=== PATIENT | male | born 1955 | race Caucasian/White ===

== ENCOUNTER 2018-12-06 11:31 | Inpatient (IN) ==
[2018-12-06] MEDS ORDERED: VANCOMYCIN 1 GM/NS 1 GM/250 ML IVPB IV ONE ×3 (12:19→17:00)
[2018-12-06 12:52] LABS: BASO# 0.04 X1000 (0.0-0.2); BASO% 0.6 % (0.0-0.8); EOS# 0.23 X1000 (0.0-0.7); EOS% 3.2 % (0.0-10.0); HEMATOCRIT 34.1 % (42.0-52.0); HEMOGLOBIN 10.9 g/dL (14.0-18.0); IMM GRAN# 0.03 X1000 (0.0-0.04); IMM GRAN% 0.4 % (0.0-0.5); LYMPH# 1.63 X1000 (1.2-3.4); LYMPH% 22.8 % (20.5-51.1); MCH 28.4 PG (27-31); MCV 88.8 FL (81-99); MONO# 0.69 X1000 (0.11-0.59); MONO% 9.7 % (1.7-9.3); MPV 10.1 FL (7.4-10.4); NEUT# 4.53 X1000 (1.4-6.5); NEUT% 63.3 % (42.2-75.2); PLT 215 X1000 (130-400); RBC 3.84 XMIL (4.7-6.1); RDW 13.9 % (11.5-14.5); WBC 7.15 X1000 (4.8-10.8)
--- NOTE | 2018-12-06 13:06 | Diag Imaging Result Doc PS360 ---
EXAM: LOWER LEG-RIGHT 12/06/2018 HISTORY: leg wound, eval for osteo TECHNIQUE: Four views COMMENT: There are soft tissue calcifications anteriorly and marked soft tissue swelling generally. There is some gas seen in the soft tissues medial to the mid tibia. No evidence of periosteal reaction or erosion is present and there is no evidence of fracture or dislocation. IMPRESSION: No evidence of osteomyelitis or other acute bony abnormality. Electronically signed by Rahul Cross 12/06/2018 1:04 PM
[2018-12-06 13:09] LABS: AGAP 12; ALBUMIN 3.8 g/dL (3.5-5.0); ALKALINE PHOSPHATASE 78 U/L (32-122); BUN 18 mg/dL (8-22); CALCIUM 9.3 mg/dL (8.8-10.2); CHLORIDE 98 mmol/L (98-107); COSMO 283; CREATININE 0.8 mg/dL (0.7-1.2); ESTIMATED GFR > 60; GLUCOSE 292 mg/dL (70-104); GOT 15 U/L (10-34); GPT 22 U/L (10-44); SODIUM 135 mmol/L (136-145); TCO2 25 mmol/L (25-35); TOTAL PROTEIN 7.4 g/dL (6.3-8.3)
--- NOTE | 2018-12-06 14:09 | PROVIDER DOCUMENTATION ---
This chart was entered by Gwen Boateng Scribe, acting as scribe for Russ Marie MD. HPI-Rash/Wound/ReCheck - General Chief Complaint: Extremity Pain Stated Complaint: ULCER ON LEG Time Seen by Provider: 12/06/18 12:11 Source: patient, family () Allergies/Adverse Reactions: Allergies Allergy/AdvReac Type Severity Reaction Status Date / Time No Known Allergies Allergy Verified 12/06/18 13:02 Home Medications: Home Medication List Medication Instructions Recorded Confirmed Last Taken Type Amitriptyline [Elavil] 25 mg PO PRN PRN 12/06/18 12/06/18 12/05/18 History Aspirin 325 mg PO DAILY 12/06/18 12/06/18 12/05/18 History Bisoprolol [Zebeta] 5 mg PO DAILY 12/06/18 12/06/18 12/05/18 History Diclofenac Sodium [Pennsaid] 2 gm TOPICAL DAILY 12/06/18 12/06/18 12/05/18 History Exenatide E.r. [Bydureon] 2 mg PO DIRECTED 12/06/18 12/06/18 12/05/18 History Furosemide [Lasix] 40 mg PO DAILY 12/06/18 12/06/18 12/05/18 History Glimepiride 4 mg PO BID 12/06/18 12/06/18 12/05/18 History Insulin Glargine,Hum.rec.anlog 80 unit SQ DAILY 12/06/18 12/06/18 12/05/18 History [Lantus Solostar] Insulin Lispro [Humalog] 30 unit SQ DIRECTED 12/06/18 12/06/18 12/05/18 History Lisinopril/Hydrochlorothiazide 1 tab PO DAILY 12/06/18 12/06/18 12/05/18 History [Lisinopril-Hctz 20-25 mg Tab] Metformin HCl [Metformin HCl ER] 1,000 mg PO BID 12/06/18 12/06/18 12/05/18 History Multivitamin with Minerals 1 ea PO DAILY 12/06/18 12/06/18 12/05/18 History [Multiple Vitamin] Oxycodone HCl/Acetaminophen 1 ea PO 4XDAY 09/28/19 09/28/19 09/27/19 History [Percocet 10-325 mg Tablet] - History of Present Illness-Dermatology Nature of Presenting Problem: 63 yowm presens to the ed with c/o wound on anterior of rt leg. pt sts wound has been present for 1 month and is worsening. pt has PVD with chronic skin changes and severe edema. pt has foul smell to wound and is nickel size. pt sts today is the first day he has left his home in 7 months and is typical home bound. Location: reports: lower extremity Quality: reports: painful Severity: reports: moderate Onset/Duration: reports: other (1 month) Timing: reports: still present, constant, getting worse Context/Associated Symptoms: reports: lesion (yoselyn size), tender area Identifiable cause?: No Exposure: reports: allergen exposure Locality of Occurance: Home Similar Symptoms Previously?: Yes Recently seen or treated by another doctor?: No (has appointment 12/09/18 with pcp) Review of Systems - Adult - REVIEW OF SYSTEMS - ADULT Constitutional: denies: chills, fever Eyes: reports: no symptoms reported Ears, Nose, Mouth & Throat: reports: no symptoms reported Cardiovascular: denies: chest pain, palpitations Respiratory: denies: cough, shortness of breath, wheezing Gastrointestinal: denies: diarrhea, nausea, vomiting Genitourinary: reports: no symptoms reported Musculoskeletal: denies: back pain, neck pain Integumentary: reports: see HPI, skin sores/ulcer, skin thickening Neurological: denies: dizziness/vertigo, headache/migraines Psychiatric: reports: no symptoms reported Endocrine: reports: no symptoms reported Hematologic/Lymphatic: reports: no symptoms reported Allergic/Immunologic: reports: no symptoms reported All Other Systems: Reviewed and Negative Past History - Adult - PAST MEDICAL HISTORY-ADULT Review of Records: reports: Old Records Reviewed, Nursing Assessment Review, Medications Reviewed, Social history reviewed & non-contributory. Major Childhood Illnesses: reports: denies history Cardiovascular: reports: PVD Respiratory: reports: denies history Gastrointestinal: reports: denies history Genitourinary: reports: denies history Musculoskeletal: reports: denies history Hand Dominance: Right Handed Neurological: reports: denies history Psychiatric: reports: denies history Endocrine/Immune: reports: denies history Other Conditions: reports: denies history - PRIOR SURGERIES/PROCEDURES Surgical/Procedure History: reports: reviewed, not pertinent - IMMUNIZATION STATUS Childhood Immunizations: See Nurse Assessment Flu Vaccine: See Nurse Assessment - FAMILY HISTORY Family History: reviewed, not pertinent - SOCIAL HISTORY Smoking: denies Substance Use: denies Living Situation: family Physical Exam-General - PHYSICAL EXAM-ADULT Initial Vital Signs Reviewed: Yes - CONSTITUTIONAL General Appearance: appears well, alert, no apparent distress, obese - EYES Eyes: PERRL/EOMI - HEAD, EARS, NOSE, MOUTH & THROAT HENMT: moist mucous membranes - NECK Neck: non-tender, supple, normal inspection - RESPIRATORY Respiratory: chest non-tender - CARDIOVASCULAR Cardiovascular: normal peripheral pulses, regular rate, rhythm - CHEST (BREASTS) Chest/Breast: deferred - GASTROINTESTINAL (ABDOMEN) Abdominal Exam: non tender, soft - GENITOURINARY Male Genitalia: deferred Rectal Exam: deferred Hemoccult Exam: deferred - LYMPHATIC Lymphatic: no adenopathy - MUSCULOSKELETAL Back Exam: no CVA tenderness, no vertebral tenderness Extremity: normal capillary refill, pelvis stable, erythema, pedal edema, swelling (BLE edema), tenderness, other (wound noted to rt anterior leg yoselyn size) - SKIN Integumentary: erythema (BLE), swelling (BLE), tenderness (BLE), other (lesion noted to rt anterior leg) - NEUROLOGIC Neurologic: grossly normal - PSYCHIATRIC Psych/Mental Status: normal mood/affect, normal thought content, normal thought process, oriented x 3 Progress - PLAN OF CARE/RESULTS Progress/Plan/Lab Results: Vital Signs - 8 hr 12/06/18 11:36 Temperature 98.1 F Pulse Rate 92 H Respiratory Rate 18 Blood Pressure 194/100 O2 Sat by Pulse Oximetry 97 Laboratory Results - last 24 hr 12/06/18 12/06/18 12:46 12:46 WBC 7.15 RBC 3.84 L Hgb 10.9 L Hct 34.1 L MCV 88.8 MCH 28.4 MCHC 32.0 L RDW Std Deviation 13.9 Plt Count 215 MPV 10.1 Immature Gran % (Auto) 0.4 Neut % (Auto) 63.3 Lymph % (Auto) 22.8 Mccormick % (Auto) 9.7 H Eos % (Auto) 3.2 Baso % (Auto) 0.6 Immature Gran # (Auto) 0.03 Neut # (Auto) 4.53 Lymph # (Auto) 1.63 Mccormick # (Auto) 0.69 H Eos # (Auto) 0.23 Baso # (Auto) 0.04 Sodium 135 L Potassium 4.0 Chloride 98 Carbon Dioxide 25 Anion Gap 12 BUN 18 Creatinine 0.8 Estimated GFR/1.73 m2 > 60 BUN/Creatinine Ratio 23 Glucose 292 H Calculated Osmolality 283 Calcium 9.3 Total Bilirubin 0.30 AST 15 ALT 22 Alkaline Phosphatase 78 Total Protein 7.4 Albumin 3.8 Globulin 4.0 Albumin/Globulin Ratio 1.0 Orders Category Date Time Status Isolation [Isolation Precautions Setup] NOW Care 12/06/18 12:52 Active LOWER LEG-RIGHT [RAD] Stat Exams 12/06/18 12:18 Completed BLOOD CULTURE [BLDCUL] Stat Lab 12/06/18 12:44 Ordered CBC WITH ELECTRONIC DIFF [HEME] Stat Lab 12/06/18 12:46 Completed COMPREHENSIVE METABOLIC PANEL [CHEM] Stat Lab 12/06/18 12:46 Completed WOUND CULTURE INC GRAM STAIN [RM] Routine Lab 12/06/18 12:18 Ordered Vancomycin 1 gm/Ns Med 12/06/18 12:19 Discontinued 1 gm in 250 ml IV NOW Result Diagrams: 12/06/18 12:46 12/06/18 12:46 - REASSESSMENT Reassessment #1 Time Reassessed: 13:35 Status: unchanged - XRAY 1 XRAY Study: other (EXAM: LOWER LEG-RIGHT 12/06/2018 HISTORY: leg wound, eval for osteo TECHNIQUE: Four views COMMENT: There are soft tissue calcifications anteriorly and marked soft tissue swelling generally. There is some gas seen in the soft tissues medial to the mid tibia. No evidence of p eriosteal reaction or erosion is present and there is no evidence of fracture or dislocation. IMPRESSION: No evidence of osteomyelitis or other acute bony abnormality. Electronically signed by Rahul Cross 12/06/2018 1:04 PM 12/06/18 130 Interpreting Physician: Rahul Cross MD Dictated Date/Time: 12/06/18 130 cc: Russ Marie MD; Mando Aguilar MD) - CONSULTS/PCP/HOSPITALIST Notification #1 *Consult/PCP/Hospitalist*: hospitalist dr oleary Consult Disposition: Admit Departure - Departure Date of Disposition Decision: 12/06/18 Time of Disposition Decision: 13:36 DIAGNOSIS: Leg ulcer Qualifiers: Laterality: right Non-pressure ulcer stage: unspecified non-pressure ulcer stage Qualified Code(s): L97.919 - Non-pressure chronic ulcer of unspecified part of right lower leg with unspecified severity Disposition: ADMITTED INPATIENT 09 Certified Medical Emergency: Emergent Condition: Stable Referrals and Follow-Ups: Mando Aguilar MD [Primary Care Provider] - - Critical Care Note This patient required my direct & personal management of CC.: No Attestation - Physician/ MAGALYS Attestation Patient care was provided by Advanced Practice Provider:: No The physician spent face to face time with patient:: Yes Advanced Practice Provider documentation review:: Supervising physician onsite and consulted in the evaluation and care of this patient. The physician did have a face to face encounter with the patient. This chart was documented by the indicated scribe, (Gwen Boateng Scribe) and accurately reflects the services I performed and decisions made by me, Russ Marie MD, as attested by the provider's signature.
[2018-12-06] MEDS ORDERED: TYLENOL PO PRN ×2 (14:15→16:09)
[2018-12-06] MEDS ORDERED: PERCOCET-10 PO PRN (14:15)
[2018-12-06] MEDS ORDERED: ELAVIL PO PRN ×2 (14:15→16:07)
[2018-12-06] MEDS ORDERED: ZOFRAN IV PRN (14:15)
[2018-12-06] MEDS ORDERED: VANCOMYCIN IV PER PHARMACY MISC SCH (14:30)
[2018-12-06] MEDS ORDERED: ZOSYN 3.375 GM in NS 50 ML IV SCH (14:30)
[2018-12-06 14:35] LABS: HEMOGLOBIN A1C 10.5 % (4.8-6.0)
--- NOTE | 2018-12-06 15:50 | HISTORY AND PHYSICAL ---
PRIMARY CARE PROVIDER: Dr. Aguilar. CHIEF COMPLAINT: Right jiang wound. HISTORY OF PRESENT ILLNESS: Mr. Cole Reese is a 63-year-old, male, who is severely morbidly obese with a BMI of 48.3. Also, medical history of peripheral vascular disease and lymphadenopathy. States that back in March he went into [facility] for about 2 weeks, weighing in at 462 pounds. Diagnosed with MRSA of a wound infection in 1 of his legs. The nor him could point out what wound it was. Apparently that tested positive for MRSA, so he was at [facility] for 2 weeks and then at [facility] for 2 weeks and dropped down to 397 pounds at that time. Apparently, he has lost a good bit of weight just from that. He became more weak. He was using a cane before he went into there; now he uses a walker around the house. Apparently, there is this wound that has got purulent drainage, almost black drainage in color. It is dark brown. It has been going on for 4 weeks now or a full month. He denies any fever. He also complains of yeast in his groin, and there is stage 1 and rubbing raw areas behind his buttocks where he sits. Lower extremities very scaly and apparently he admitted to his dog licking his wounds when he is asleep. So we have gotten a culture, we started him on antibiotic therapy, we will send him to [facility], let General Surgery look at it. It may need to be debrided. Have Dr. Prather with Infectious Disease take a look at it, follow up on all the cultures. Hopefully we can get an MRI of the lower extremity on Saturday, but he could be weight limited so he may not be able to get one. Going to try and get old records from [facility] from back in March. Will see. We will try and get this cleared up for him. PAST MEDICAL HISTORY: 1. Peripheral vascular disease. 2. Lymphadenopathy. 3. Diabetes mellitus type 2. 4. Hypertension. 5. Chronic pain syndrome. 6. March 2018 MRSA of 1 of his legs. 7. Arthritis. 8. Hyperlipidemia. 9. GERD. 10. Morbid obesity with a BMI of 48.3. 11. Frequent lower extremity wounds. SURGICAL HISTORY: 1. Tonsillectomy. 2. At 5 weeks old, he had umbilical hernia repair. SOCIAL HISTORY: Denies tobacco, drinks 1 alcoholic beverage a month. Denies any illicit drug use. Lives at home with his . FAMILY HISTORY: Had a twin brother who only had asthma, and he has got some sort of hernia as well. His mother had colon cancer that went into the liver. She also had a stroke in her 30s after a car accident. Father had heart disease and a permanent pacemaker. This started in his 60s. ALLERGIES: Celebrex causes anaphylaxis and he had ether when he was a baby, 5 weeks old, that caused respiratory distress. HOME MEDICATIONS: 1. Aspirin 325 mg p.o. daily. 2. Bydureon once a week 2 mg. 3. Elavil 25 mg p.o. at night p.r.n. for insomnia. 4. Glimepiride 4 mg p.o. twice daily. 5. Lispro insulin sliding scale. 6. Insulin glargine 80 units subcutaneous daily. 7. Lasix 40 mg p.o. daily. 8. Lisinopril/hydrochlorothiazide 1 tablet p.o. daily. 9. Metformin 1000 mg p.o. daily. 10. Multivitamin 1 tablet p.o. daily. 11. Diclofenac 2 g topical. 12. Percocet 10 one tablet p.o. 4 times a day p.r.n. 13. Bisoprolol 5 mg p.o. daily. REVIEW OF SYSTEMS: Fourteen point review of systems are complete and all were negative, except for those mentioned above in HPI. PHYSICAL EXAMINATION: VITAL SIGNS: Temperature 98.1 degrees, heart rate 92, respiratory rate 18, blood pressure 194/100, O2 saturation 97% on room air. He is 6 feet 4 inches tall, 397 pounds. BMI is 48.3. GENERAL: Mr. Coel Reese is a 63-year-old, male. He is in no acute distress. He is able to answer questions appropriately. HEENT: Atraumatic, normocephalic. Pupils equal, round, reactive to light. Extraocular movements intact. Mucous membranes are moist. NECK: Trachea midline, but he has got a very thick neck from his body habitus. CARDIOVASCULAR: S1, S2. Regular rate and rhythm. No rubs, gallops, murmurs. He has got lymphedema in bilateral lower extremities 4+ or more that we have scaled. Feet are warm to touch. Difficult to feel for pulses underneath all of that edema. He has got +2 radial pulses. Negative JVD or carotid bruits. PULMONARY: Clear to auscultation. Bilateral breath sounds. No accessory muscle use or work of breathing noted. GI: Soft, obese. Positive bowel sounds x4. EXTREMITIES: Decreased range of motion. Decreased strength, especially in the bilateral lower extremities. Toes were equal and there is very, very large lymphedema on both legs. NEUROLOGIC: A and O x3. Follows commands. Decreased sensory in the lower extremities. SKIN: Warm, dry. An open wound in the right jiang that tunnels with purulent drainage, the size of a quarter or maybe a little smaller, but it definitely tunnels. There is dark brown drainage that comes out of it. Both lower extremities are scaling. They are edematous, they are weeping, they are very dirty. He has got raw areas behind each buttock secondary to sitting in his chair most of the time. He has got yeast in the groins and in all folds. LABORATORY DATA: White blood cells 7000, hemoglobin 10, hematocrit 34, platelet count 215. Sodium 135, potassium 4.0, BUN 18, creatinine 0.8, glucose 292. Hemoglobin A1c is 10.5, calcium 9.3, bilirubin 0.30. AST 15, ALT 22, albumin 3.8. IMAGING: Lower extremity x-ray: No evidence of osteomyelitis or other acute bony abnormality. ASSESSMENT AND PLAN: 1. Right jiang wound that is infected. It appears to be gangrenous and x-ray rules out osteomyelitis, but likely needs MRI. Problem is his size though; the weight may prevent him from being able to have an MRI. Started on vancomycin and Zosyn. We will consult General Surgery to evaluate and also Dr. Prather with Infectious Disease. We will also consult wound care. 2. Yeast in the groins, raw areas on the buttocks and then both lower extremities have lots of skin issues and areas for possible future wounds. Again we are consulting Wound Care for any further recommendations to assist with healing the patient. 3. Diabetes mellitus type 2, uncontrolled. We will do a sliding scale insulin, pattern blood glucoses and diabetic diet. 4. Peripheral vascular disease and lymphedema. 5. Hypertension. Continue home medications. 6. Chronic pain syndrome. Continue Percocet. 7. History of methicillin-resistant Staphylococcus aureus and a wound in his leg. Also admits to dog licking his wounds which is very unsanitary, so we are trying to get records from [facility] from March's admission, and he is on isolation for this. 8. Arthritis. 9. Hyperlipidemia. Continue statin. 10. Gastroesophageal reflux disease. 11. Morbid obesity with a body mass index of 48.3. His hospital stay in March had a 65 pound weight loss. Weight loss is encouraged to help this man actually become less homebound. Essentially he is using a walker to be able to get around, but mostly stays in his chair. Apparently he has not been out of the house since March. He has been in the home for the last almost 10 months. 12. Deep venous thrombosis. Lovenox. Dictated by WALTER Ortiz for Heber Boo MD Addendum: Patient seen and examined by myself. Agree with WALTER note. It reflects my assessment and plan. Patient is admitted to hospital for right lower extremity cellulitis. He has history of MRSA infection. Will start broad spectrum antibiotics, will consult General Surgery and ID and will order an MRI of right leg to rule out osteomyelitis. Unfortunately his morbid obesity may preclude him to have that exam done. Will monitor patient closely and transfer him to [facility]. cc: WALTER Ortiz MD [facility]
[2018-12-06] MEDS ORDERED: HUMULIN R (PARKWAY) SUBQ SCH (16:00)
[2018-12-06] MEDS: PERCOCET-10 PO PRN ×2 (17:13→22:39)
[2018-12-06] MEDS ORDERED: MYCOSTATIN POWDER TOP SCH (21:00)
--- NOTE | 2018-12-06 21:10 | PROGRESS NOTE ---
DATE: 12/06/2018 INTERVAL HISTORY: He was transferred from [facility]. SUBJECTIVE: He denies any complaints except right leg pain which is still tolerable. He states the wound has been ongoing for a few months, for which he was admitted to [facility]. He does not remember too much of details. He is a poor historian. He was discharged to rehab in April. Since then it started getting worse. OBJECTIVE: Currently, he is afebrile with temperature of 98 degrees, pulse of 98, respiratory rate 20, blood pressure 160/70. He is saturating 96% on room air. On physical examination, morbidly obese, not in acute distress. Oral cavity is moist. Air entry bilaterally equal. No wheeze, rhonchi, or crackles. S1, S2 are normal. No murmur, rub, or gallop. Abdomen is obese, soft, nontender. He denies any complaints. Right lower extremity has about a 4 x 4 cm round- looking wound in the middle of the jiang of the tibia, with foul-smelling watery and pus-like discharge. He has tinea cruris affecting bilateral groins, which is also foul-smelling. He has bilateral lymphedema. LABORATORY DATA: Normocytic anemia. Normal kidney function. Hyperglycemia. Microbiology: None. DIAGNOSTIC DATA: Lower extremity x-ray was unremarkable. ASSESSMENT AND PLAN: Right leg chronic wound, likely necrotizing cellulitis versus osteomyelitis. Follow up wound culture. Continue intravenous vancomycin, intravenous Zosyn. Follow up Infectious Disease and Surgery recommendations. I will start him on intravenous Lasix and put in a Villanueva catheter. I will keep a close eye over blood sugars and continue most of his home medications. cc: Larry Cassidy MD
[2018-12-06] MEDS: LASIX IV SCH (21:31)
[2018-12-06] MEDS: HUMULIN R SUBQ SCH (21:32)
[2018-12-06] MEDS: ZOSYN 3.375 GM in NS 50 ML IV SCH (21:32)
[2018-12-07] MEDS: LASIX IV SCH ×4 (02:46→20:57)
[2018-12-07] MEDS ORDERED: VANCOMYCIN 2 GM in NS 500 ML IV SCH ×2 (04:00→05:00)
[2018-12-07] MEDS: ZOSYN 3.375 GM in NS 50 ML IV SCH ×2 (05:03→10:35)
[2018-12-07] MEDS: HUMULIN R SUBQ SCH ×4 (06:00→20:57)
[2018-12-07] MEDS: PERCOCET-10 PO PRN ×2 (06:45→18:14)
--- NOTE | 2018-12-07 07:04 | GENERAL SURGERY CONSULTATION ---
DATE: 12/07/2018 REQUESTING PHYSICIAN: The hospitalist. REASON FOR CONSULTATION: Consult is regarding a right leg wound. HISTORY OF PRESENT ILLNESS: A 63-year-old who is severely morbidly obese with a BMI of 53, who has a history of peripheral vascular disease, lymphadenopathy, and leg swelling, who had been in the hospital previously for a wound infection of his leg. He has apparently had it positive for MRSA and has been treated multiple times. He had even followed with [facility]. This current area has been draining of his right leg for a while. It has been purulent. It has not improved. He was seen in the emergency department at [facility] and admitted. He had an x-ray that did not show osteomyelitis. He is too large for an MRI. PAST MEDICAL HISTORY: Includes peripheral vascular disease, lymphadenopathy, diabetes mellitus type 2, hypertension, chronic pain syndrome, history of MRSA, arthritis, hyperlipidemia, gastroesophageal reflux disease, morbid obesity, frequent lower extremity wounds. PAST SURGICAL HISTORY: Includes tonsillectomy, umbilical hernia repair. SOCIAL HISTORY: Reports about one alcoholic beverage a month. Denies illicit drugs. FAMILY HISTORY: Positive for asthma. Full list of family medical issues reviewed. ALLERGIES: Celebrex. HOME MEDICATIONS: Full list reviewed. REVIEW OF SYSTEMS: A full 14 systems reviewed and negative except as specified in the HPI. PHYSICAL EXAMINATION: Vital Signs: The patient is currently afebrile. Vital signs are stable. General Examination: No acute distress. Morbidly obese, male. Looks stated age. HEENT: Normocephalic, atraumatic. Pupils equal, round, reactive to light. Mucous membranes moist. Oropharynx benign. Neck: Supple. Trachea midline. Cardiovascular: Regular rate and rhythm. Lungs: Grossly clear. Abdomen: Obese, nontender. Extremities: Right leg with significant swelling. There is a wound that is maybe 1.5 cm in diameter with purulent drainage. There is some tracking noted posterior and medial with some more purulence. I did not feel any crepitus. The erythema is confined to the lower aspect of the leg. There are chronic venous changes noted. Vascular: All extremities perfused. Neurologic: Grossly intact. Skin: As noted above. LABORATORY: White blood count is normal, hematocrit is 34. Remainder of labs reviewed. X-ray reviewed. ASSESSMENT AND PLAN: A 63-year-old gentleman with a right lower extremity leg wound. Right lower extremity leg wound. At this time, patient's morbid obesity makes him almost prohibitively too heavy for our operating room tables. At this point, we will try local wound care. We will try to do Vashe wet-to-dry packing into the wound, change frequently with expression of the purulence. We will see if we can get this to clear up. Again, his morbid obesity makes him almost too heavy to be able to do any debridement in the operating room, which is probably what we would have to do to get this wound to heal up. We will continue to follow him. I would recommend keeping him on the intravenous antibiotics. cc: Shaji Cobos MD
[2018-12-07 07:10] LABS: BASO# 0.02 X1000 (0.0-0.2); BASO% 0.3 % (0.0-0.8); EOS# 0.35 X1000 (0.0-0.7); EOS% 4.4 % (0.0-10.0); HEMATOCRIT 35.9 % (42.0-52.0); HEMOGLOBIN 11.7 g/dL (14.0-18.0); IMM GRAN# 0.02 X1000 (0.0-0.04); IMM GRAN% 0.3 % (0.0-0.5); LYMPH# 2.15 X1000 (1.2-3.4); LYMPH% 27.2 % (20.5-51.1); MCH 28.6 PG (27-31); MCHC 32.6 g/dL (33-37); MCV 87.8 FL (81-99); MONO# 0.67 X1000 (0.11-0.59); MONO% 8.5 % (1.7-9.3); MPV 10.2 FL (7.4-10.4); NEUT# 4.68 X1000 (1.4-6.5); NEUT% 59.3 % (42.2-75.2); PLT 224 X1000 (130-400); RBC 4.09 XMIL (4.7-6.1); RDW 14.1 % (11.5-14.5); WBC 7.89 X1000 (4.8-10.8)
[2018-12-07 07:22] LABS: INR 1.05; PROTIME 13.8 Seconds (11.0-16.0)
[2018-12-07 07:28] LABS: AGAP 14; BUN 13 mg/dL (8-22); CALCIUM 9.1 mg/dL (8.8-10.2); CHLORIDE 96 mmol/L (98-107); COSMO 281; CREATININE 0.9 mg/dL (0.7-1.2); ESTIMATED GFR > 60; GLUCOSE 226 mg/dL (70-104); MAGNESIUM 1.6 mg/dL (1.5-2.7); POTASSIUM 3.5 mmol/L (3.5-5.1); SODIUM 137 mmol/L (136-145); TCO2 27 mmol/L (25-35)
[2018-12-07] MEDS: LOVENOX SUBQ SCH (08:46)
[2018-12-07] MEDS: ZEBETA PO SCH (08:46)
[2018-12-07] MEDS: THERA M PLUS PO SCH (08:46)
[2018-12-07] MEDS: LANTUS INSULIN SUBQ SCH (08:47)
[2018-12-07] MEDS: MIRALAX PO SCH (08:47)
[2018-12-07] MEDS ORDERED: LASIX PO SCH ×2 (09:00)
[2018-12-07] MEDS ORDERED: ZEBETA PO SCH (09:00)
[2018-12-07] MEDS ORDERED: NON-FORMULARY MED (Lisinopril/Hydrochlorothiazide [Lisinopril-Hctz 20-25 Mg Tab] 1 TAB) PO SCH (09:00)
[2018-12-07] MEDS ORDERED: LOVENOX SUBQ SCH (09:00)
[2018-12-07] MEDS ORDERED: ASPIRIN PO SCH (09:00)
[2018-12-07] MEDS ORDERED: PRINIVIL PO SCH ×2 (09:00)
[2018-12-07] MEDS ORDERED: LANTUS INSULIN SUBQ SCH (09:00)
[2018-12-07] MEDS ORDERED: THERA M PLUS PO SCH (09:00)
[2018-12-07] MEDS ORDERED: HYDROCHLOROTHIAZIDE PO SCH (09:00)
[2018-12-07] MEDS: ASPIRIN PO SCH (10:35)
[2018-12-07] MEDS: PATIENT'S OWN MED TOP SCH (10:45)
[2018-12-07] MEDS: MYCOSTATIN POWDER TOP SCH ×2 (10:45→20:57)
--- NOTE | 2018-12-07 11:42 | PROGRESS NOTE ---
DATE: 12/07/2018 INTERVAL HISTORY: No acute events overnight. He was started on intravenous Lasix, following which he has had good urine output. Surgical team had evaluated him and considered that his body mass index and body weight is too high for operating room intervention, and currently recommends local wound care. The patient denies any complaints, and request to be seen by a dietitian for weight reduction. No new complaints. OBJECTIVE: Vital Signs: Temperature 97.9 degrees, pulse 84, respiratory rate 17, blood pressure 130/60, saturating 96% on room air. Bedside EKG has normal sinus rhythm. General: Not in any acute distress. HEENT: Oral cavity is moist. Lungs: Air entry bilaterally equal. No wheeze, rhonchi, crackles. Cardiovascular: S1, S2 normal. Regular. No murmur or gallop. Abdomen: Obese, soft, nontender. No abdominal tenderness. : He has a urine catheter. He has bilateral groin tinea corporis. Extremities: He has about a 4 x 4 cm round-looking ulcer in the middle of the anterior jiang of right tibia with foul-smelling, watery, and pus-like discharge on yesterday's examination. He also has bilateral lower extremity edema extending up to knee level, with lichenified skin overlying. Input and output suggest -4 L so far today. LABORATORY DATA: Suggestive of no leukocytosis. Normal hemoglobin. Normal coagulation. Normal kidney function. His blood glucose is on the higher side, and I would consider adjusting his insulin dose accordingly. His lipid panels were largely unremarkable. MICROBIOLOGY: Wound culture, blood culture, and urine cultures are pending. IMAGING: No new imaging. ASSESSMENT AND PLAN: 1. Right lower extremity anterior leg wound with prior history of methicillin-resistant staphylococcus aureus infection. Continue Vashe wet-to-dry packing with frequent expression of the purulence, intravenous vancomycin, intravenous Zosyn. Follow up blood culture and local wound culture results. Surgical team recommends nonoperative management at the moment. X-ray did not detect any osteomyelitis. Continue intravenous Lasix for bilateral lymphedema. MRI has been ordered. I am unsure whether it could be done considering his large body habitus. Infectious Disease recommendations are pending. Wound care nurse to evaluate the patient as well. 2. Bilateral tenia corporis, made worse by urine making the skin damp and macerated. Continue Villanueva catheterization and apply nystatin powder. Wound care nurse to evaluate as well. 3. History of uncontrolled hyperglycemia with insulin-dependent diabetes mellitus type 2. Continue current dose of insulin glargine and sliding scale insulin, and I will adjust the dose accordingly. 4. Others. Continue amitriptyline, acetaminophen, Percocet for chronic pain; bisoprolol and hydrochlorothiazide for essential hypertension, and hold lisinopril considering he is on Lasix, to avoid acute kidney injury. 5. Continue physical therapy. 6. Disposition. I will continue to monitor the patient inside the hospital. Plan of care discussed with him. All of his questions have been answered. cc: Larry Cassidy MD
--- NOTE | 2018-12-07 13:40 | INFECTIOUS DISEASE CONSULT REP ---
DATE: 12/07/2018 CONCLUSION: The patient has bilateral leg cellulitis. The right leg is much more severe than the left leg. In addition, the right leg has a deep wound. The patient also, by history, has urinary retention. A Gram stain from both of the patient's legs show gram-negative rods. RECOMMENDATIONS: I have discontinued vancomycin and Zosyn, and instead, put the patient on cefepime. Some of the side effects of the antibiotic including rash and diarrhea have been explained to the patient who agrees with treatment. The patient, because he is morbidly obese, is unable to get an MRI of his legs to see if there is bone involvement. I have ordered a triple phase bone scan of both legs to look for the possibility of osteomyelitis. I have put in a consult for Dr. Rueda of urology to see the patient tomorrow regarding urinary retention. DISCUSSION: The patient, for years, has had bilateral leg edema and there have been infections of the legs. He last was being treated for methicillin-resistant Staphylococcus aureus infection of the right leg. The patient's laboratory studies thus far show a CBC with a white count of 7890, hemoglobin is 11.7, platelet count of 224,000. Creatinine is 0.9. GFR is greater than 60. A Gram stain taken from the patient's left and right legs both show gram-negative rods. Blood, urine, and leg cultures are pending. X-ray of the right leg showed soft tissue swelling but no evidence of osteomyelitis. PAST MEDICAL HISTORY/REVIEW OF SYSTEMS: Eyes and Ears: The patient wears glasses and he has decreased hearing. Neck: No stiffness. Respiratory: No cough or dyspnea. Cardiac: No chest pain or palpitations. GI: No nausea or vomiting. The patient tells me that he produces hard, painful stools and sometimes there are days between passage of stool. Genitourinary: The patient tells me that he does not feel like he fully empties his bladder and he tells me that he had his bladder catheterized at one time. The patient had 1500 mL of urine in his bladder. The patient's past medical history is positive for peripheral vascular disease, bilateral leg edema, diabetes mellitus, hypertension, arthritis, hyperlipidemia, gastroesophageal reflux disease, morbid obesity, and frequent lower extremity wounds. Neurologic: The patient says that he can walk with the use of canes. He does not have any seizures. PAST SURGICAL HISTORY: Positive for tonsillectomy and umbilical hernia repair. FAMILY HISTORY: Positive for cancer, diabetes mellitus, hypertension, and stroke. SOCIAL HISTORY: The patient drinks one alcoholic beverage a month. He denies using illicit drugs. He does not smoke cigarettes. He is retired. He has dogs and a cat for pets. ALLERGIES: He is allergic to ether and Celebrex. MEDICATIONS TAKEN AT HOME: Include Elavil, aspirin, Zebeta, diclofenac, Exenatide, Lasix, glimepiride, insulin, lisinopril/hydrochlorothiazide, metformin, vitamins and minerals, and oxycodone. PHYSICAL EXAMINATION: Vital Signs: Temperature is 97.9 degrees, pulse 84, respirations 17, blood pressure is 138/64. The patient is 6 feet 4 inches tall and weighs 440 pounds. General: This is a morbidly obese, middle-aged male. He does not seem to be in any acute distress. Head, Eyes, Ears, Nose, and Throat: He is wearing glasses. He can hear my spoken words and see near objects. No drainage is noted from the nose or ears. Neck: No meningismus. Lungs: Clear to auscultation. There were diminished breath sounds, however. Cardiovascular: Heart rate is regular. The heart tones were diminished also. Abdomen: Soft and nontender. Extremities: The patient has swelling and erythema of the legs. It involves the right leg to a much greater degree than the left leg. There is an ulcerated area in the right leg that has a seropurulent drainage but no odor. Neurologic: The patient is alert. He can move his extremities. There is no tremor. His memory as regarding his medical history is intact. Urologic: The patient, as mentioned above, feels he does not fully empty his bladder and he has urinary retention. Thank you for the consult. cc: Keny Prather MD
[2018-12-07] MEDS: ZOFRAN IV PRN (15:47)
[2018-12-07] MEDS: HYDROCHLOROTHIAZIDE PO SCH (16:00)
[2018-12-07] MEDS: MAXIPIME 2 GM in NS 100 ML IV SCH (16:04)
[2018-12-07] MEDS: KLOR-CON PO SCH ×2 (17:51→20:57)
[2018-12-07] MEDS: MAGNESIUM SULFATE 2 GM/S.W.I. 2 GM/50 ML IVPB IV SCH ×2 (17:52→20:57)
[2018-12-08] MEDS: MAXIPIME 2 GM in NS 100 ML IV SCH ×3 (01:31→17:26)
[2018-12-08] MEDS: LASIX IV SCH ×4 (01:31→20:31)
[2018-12-08] MEDS: PERCOCET-10 PO PRN ×4 (05:42→17:26)
[2018-12-08] MEDS: HUMULIN R SUBQ SCH ×4 (06:07→20:31)
--- NOTE | 2018-12-08 07:01 | GENERAL SURGERY PROGRESS NOTE ---
DATE: 12/08/2018 SUBJECTIVE: The patient seems to be doing okay. OBJECTIVE: Vital Signs: The patient is currently afebrile. His vital signs are stable. General Examination: No acute distress. Morbidly obese, male. HEENT: Normocephalic, atraumatic. Pupils equal, round, reactive to light. Mucous membranes moist. Oropharynx benign. Neck: Supple. Trachea midline. Cardiovascular: Regular rate and rhythm. Lungs: Grossly clear. Abdomen: Obese but soft. Extremities: Consistent with chronic lymphatic issues. Right leg wound is slightly better than it was. Less purulent drainage noted but still with some erythema. Laboratory: None this morning as of yet. Microbiology, no speciation yet. ASSESSMENT AND PLAN: A 63-year-old with a right lower extremity wound. Right lower extremity wound. At this time, continue local wound care. Again, he is too heavy to do an MRI and he might be too heavy for our operating room table, so we will continue to monitor with local wound care and intravenous antibiotics. cc: Shaji Cobos MD
[2018-12-08 07:44] LABS: AGAP 11; BUN 16 mg/dL (8-22); CALCIUM 8.8 mg/dL (8.8-10.2); CHLORIDE 93 mmol/L (98-107); COSMO 274; ESTIMATED GFR > 60; GLUCOSE 216 mg/dL (70-104); SODIUM 133 mmol/L (136-145); TCO2 29 mmol/L (25-35)
[2018-12-08] MEDS: ASPIRIN PO SCH (09:41)
[2018-12-08] MEDS: HYDROCHLOROTHIAZIDE PO SCH (09:42)
[2018-12-08] MEDS: THERA M PLUS PO SCH (09:42)
[2018-12-08] MEDS: MYCOSTATIN POWDER TOP SCH (09:42)
[2018-12-08] MEDS: ZEBETA PO SCH (09:42)
[2018-12-08] MEDS: LOVENOX SUBQ SCH (09:43)
[2018-12-08] MEDS: MIRALAX PO SCH ×2 (09:43→20:31)
[2018-12-08] MEDS: LANTUS INSULIN SUBQ SCH ×2 (09:43→21:41)
[2018-12-08] MEDS: PATIENT'S OWN MED TOP SCH (09:44)
--- NOTE | 2018-12-08 16:19 | Diag Imaging Result Doc PS360 ---
3 PHASE BONE SCAN - 12/08/2018 INDICATION: bilateral leg osteomyelitis TECHNIQUE: Three phase bone scan of the ankles and feet. 27.6 mCi of MDP was administered. COMPARISON: X-rays from 12/21/2016 FINDINGS: There is normal perfusion, blood pool phase, and delayed phase activity. No suspicious activity to suggest osteomyelitis. IMPRESSION: Negative exam. Electronically signed by Jeff Mendoza 12/08/2018 4:17 PM
--- NOTE | 2018-12-08 19:48 | PROGRESS NOTE ---
DATE: 12/08/2018 INTERVAL HISTORY: No acute events overnight. His wound culture is not back yet. He has not had a bowel movement and I intensified the bowel regimen. We discussed about keeping him on the same antibiotics and Lasix regimen. I also changed his activity status to up with assistance as tolerated. VITALS: Currently temperature of 97.8 degrees, pulse 76, respiratory rate 18, blood pressure 120/66. He is saturating 98% on room air. PHYSICAL EXAMINATION: Morbidly obese. Not in any acute distress. Oral cavity is moist. LUNGS: Air entry bilaterally equal. No wheeze or crackles.Heart: Normal, regular. No murmur or gallop. Abdomen: Obese, soft, nontender. No abdominal tenderness. He has a urine catheter. Bilateral groin tinea corporis. Extremities: He has about 4 x 4 cm round looking ulcer in the middle of the anterior jiang of right tibia. On my yesterday's examination, it had a foul smelling watery pus-like discharge. He also has bilateral elephantiasis due to lymphedema extending up to knee level and lichenified skin overlying. Input and output suggest another 4 L today, negative. LABS: No CBC today. BMP suggestive of low sodium and chloride. His kidney function is normal. He does have hyperglycemia for which I am adding nighttime Lantus. He does not have magnesium levels, which I will repeat tomorrow. ASSESSMENT AND PLAN: 1. Right lower extremity anterior leg wound with prior history of methicillin-resistant Staphylococcus aureus infection as per history given to me. Continue Vashe, wet-to-dry packing with frequent expression of purulence, intravenous cefepime as per surgery and Infectious Disease recommendation. His bone scan did not detect osteomyelitis. His wound cultures and blood cultures are in the lab. Also, continue intravenous Lasix for bilateral lymphedema. Continue physical activity as tolerated. 2. Bilateral tinea corporis made worse by leakage of urine because of occasional incontinence. Continue Villanueva catheter and topical nystatin powder. Wound care nurse is evaluating the patient. 3. History of uncontrolled hyperglycemia with insulin-dependent diabetes mellitus type 2. Continue insulin glargine daytime and add a nighttime dose. Also, continue sliding scale insulin. 4. Others. Continue acetaminophen, Percocet for chronic pain; bisoprolol hydrochlorothiazide for essential hypertension; I am holding lisinopril considering he has been normotensive as well as he is on Lasix to avoid acute kidney injury. 5. Continue physical therapy. DISPOSITION: I will continue to monitor patient inside the hospital. Eventually he may need to go to rehab depending on his functional status in next 24 to 48 hours. Plan of care discussed with the patient and his at bedside. Their questions have been answered. cc: Larry Cassidy MD
[2018-12-08] MEDS: DULCOLAX PR SCH (20:30)
[2018-12-08] MEDS: FLOMAX PO SCH (20:30)
--- NOTE | 2018-12-08 20:54 | CONSULTATION ---
DATE OF CONSULTATION: 12/08/2018 ATTENDING PHYSICIAN: [place]. REFERRING PHYSICIAN: Dr. Prather. HISTORY OF PRESENT ILLNESS: This 63-year-old male was admitted with bilateral lower extremity cellulitis and urinary retention. The patient states that he has a long history of lower extremity problems. He is morbidly obese and was hospitalized approximately 9 months ago for lower extremity cellulitis. He states at that time the catheter was put in and he had over 1500 mL of urine returned. He states his catheter was left in for about 1 week but he did not have any treatment for his urinary retention. The patient has been getting IV Lasix and the catheter was placed and he had over 4 L of urine output yesterday. He denied any previous urologic surgery. He has no history of kidney stones. He denies problems with urinary tract infection. He is not taking any medication for his prostate. He states his father was diagnosed with prostate cancer. He states his PSA has not been checked in several years. PAST MEDICAL HISTORY: Peripheral vascular disease, diabetes, hypertension, elevated cholesterol, gastroesophageal reflux disease, chronic pain, morbidly obese. CURRENT MEDICATIONS: Documented on the chart. PAST SURGICAL HISTORY: Umbilical hernia repair, tonsillectomy, wisdom teeth extraction. SOCIAL HISTORY: No tobacco use. Rare alcohol use. ALLERGIES: He is allergic to Celebrex. REVIEW OF SYSTEMS: He denies any problems with strokes or seizures. He has had no recent bowel problems. He has no problems hearing or seeing. He states he was told by his orthopedic physician that both knees need to be replaced but he has to lose a significant amount of weight before the surgery will be done. PHYSICAL EXAMINATION: A morbidly obese, age apparent, white male, oriented in all ways and cooperative.HEENT: Normal for age. Lungs: Clear. Cardiovascular: Regular rate and rhythm. Abdomen: Morbidly obese, soft, nontender. The intraabdominal contents can not be palpated. Genitourinary: Circumcised male with Villanueva catheter in place. Both testes are down and palpably normal. Rectal: Exam could not be performed. Extremities: Upper extremities normal. Lower extremities, marked edema on both sides with dressings over areas of cellulitis, right side worse than left. Neurologic: No focal deficits. LABORATORY EVALUATION: Has a white count of 7.89, hemoglobin 11.7, hematocrit 35.9, platelets 224,000. Serum electrolytes are normal. BUN 13, creatinine 0.9. IMPRESSION: 1. Urinary retention probably due to immobility and getting a large amount of diuretics. 2. Bilateral lower extremity cellulitis. 3. Morbid obesity. 4. Currently on bedrest. PLAN: 1. Start Flomax 0.4 mg b.i.d. 2. Discuss with patient that some people have to stand to completely empty. We will recommend this after his diuresis is complete. 3. Discuss with patient clean intermittent catheterization if the bladder does not start working. Thank you for this consultation. cc: Nate Rueda MD
--- NOTE | 2018-12-08 21:09 | INFECTIOUS DISEASE PROGRESS NO ---
DATE: 12/08/2018 PRESENT ILLNESS: Mr. Reese has bilateral lower extremity cellulitis with a wound to the right lower extremity. At this point, there are gram-negative rods growing on the Gram stain of cultures to both lower extremities. However more incubation is required. Bone scan done today shows nothing to suggest osteomyelitis. MEDICATIONS: He is receiving cefepime 2 g IV every 8 hours. Today is day 1 of that medication. PHYSICAL EXAMINATION: Vital Signs: Temperature is 97.8 degrees, pulse rate 79, respiratory rate 14, blood pressure 121/66, O2 saturation 97% on room air. General: This is a morbidly obese, chronically ill appearing gentleman, he is lying in bed currently in no acute distress. HEENT: Atraumatic, normocephalic. Oral mucous membranes are pink and moist. Conjunctivae are pink. Neck: Supple. Trachea is midline. Cardiovascular: Heart rate and rhythm are regular. Normal sinus rhythm on the monitor. Respiratory: Lung sounds are clear, diminished to auscultation. No work of breathing is noted. Abdomen: Soft, obese and nontender. Bowel sounds are active. Neurologic: He is awake, alert, oriented and has decreased mobility due to his size. Integument: Skin to the bilateral lower extremities is erythematous and very dry and peeling. There is a dressing to the right calf which was not removed due to recent change. LABORATORY AND X-RAY: No CBC today. However his creatinine is 1, estimated GFR is greater than 60. The urine culture showed no growth, however the right leg and left leg cultures require more incubation. They both show gram-negative rods on the Gram stain. Blood cultures have shown no growth after 48 hours. The bone scan shows no evidence of osteomyelitis. ASSESSMENT AND PLAN: Mr. Reese is receiving cefepime for a bilateral lower extremity cellulitis. Both legs are growing gram-negative rods so we will continue cefepime until the final cultures are obtained. These plans have been discussed with and recommended by Dr. Prather. COMORBIDITIES: Include morbid obesity with decreased mobility, previous MRSA infection, peripheral vascular disease, diabetes mellitus, lymphadenopathy and gastroesophageal reflux disease. Dictated by WALTER Berger for Keny Prather MD cc: Keny Prather MD
[2018-12-09] MEDS: MAXIPIME 2 GM in NS 100 ML IV SCH ×2 (00:07→08:49)
[2018-12-09] MEDS: PERCOCET-10 PO PRN ×2 (00:07→05:54)
[2018-12-09] MEDS: LASIX IV SCH ×4 (03:20→20:59)
[2018-12-09] MEDS: MYCOSTATIN POWDER TOP SCH ×3 (05:16→21:02)
[2018-12-09] MEDS: HUMULIN R SUBQ SCH ×4 (06:58→21:00)
[2018-12-09 07:27] LABS: BASO# 0.01 X1000 (0.0-0.2); BASO% 0.2 % (0.0-0.8); EOS# 0.59 X1000 (0.0-0.7); HEMATOCRIT 39.1 % (42.0-52.0); HEMOGLOBIN 12.4 g/dL (14.0-18.0); IMM GRAN# 0.02 X1000 (0.0-0.04); IMM GRAN% 0.3 % (0.0-0.5); LYMPH# 1.52 X1000 (1.2-3.4); LYMPH% 25.9 % (20.5-51.1); MCH 28.1 PG (27-31); MCHC 31.7 g/dL (33-37); MCV 88.5 FL (81-99); MONO# 0.56 X1000 (0.11-0.59); MONO% 9.5 % (1.7-9.3); NEUT# 3.18 X1000 (1.4-6.5); NEUT% 54.1 % (42.2-75.2); PLT 231 X1000 (130-400); RBC 4.42 XMIL (4.7-6.1); RDW 14.1 % (11.5-14.5); WBC 5.88 X1000 (4.8-10.8)
[2018-12-09 08:09] LABS: AGAP 15; BUN 19 mg/dL (8-22); CALCIUM 8.6 mg/dL (8.8-10.2); CHLORIDE 92 mmol/L (98-107); COSMO 281; CREATININE 0.9 mg/dL (0.7-1.2); ESTIMATED GFR > 60; GLUCOSE 217 mg/dL (70-104); MAGNESIUM 1.9 mg/dL (1.5-2.7); POTASSIUM 3.6 mmol/L (3.5-5.1); SODIUM 136 mmol/L (136-145); TCO2 29 mmol/L (25-35)
[2018-12-09] MEDS: ASPIRIN PO SCH (08:49)
[2018-12-09] MEDS: ZEBETA PO SCH (08:49)
[2018-12-09] MEDS: MIRALAX PO SCH ×2 (08:50→20:57)
[2018-12-09] MEDS: FLOMAX PO SCH ×2 (08:50→20:57)
[2018-12-09] MEDS: LOVENOX SUBQ SCH (08:50)
[2018-12-09] MEDS: THERA M PLUS PO SCH (08:50)
[2018-12-09] MEDS: PATIENT'S OWN MED TOP SCH (08:51)
[2018-12-09] MEDS: DULCOLAX PR SCH ×2 (08:51→20:56)
[2018-12-09] MEDS: LANTUS INSULIN SUBQ SCH ×2 (08:51→23:27)
[2018-12-09] MEDS: HYDROCHLOROTHIAZIDE PO SCH (08:53)
[2018-12-09] MEDS ORDERED: DILAUDID IV ONE (10:08)
--- NOTE | 2018-12-09 10:14 | GENERAL SURGERY PROGRESS NOTE ---
DATE: 12/09/2018 SUBJECTIVE: Patient seems to be doing about the same. OBJECTIVE: Vital Signs: Patient is currently afebrile. His vital signs stable. General: No acute distress. Cardiovascular: Regular rate and rhythm. Lungs: Grossly clear. Abdomen: Obese. Extremities: Right lower extremity wound about the same. Removed old dressing. There is some mild purulence expressed, but otherwise seems to be about the same. Still significant swelling and lymphedema noted to both legs. LABORATORY: Reviewed microbiology: No growth as of yet. ASSESSMENT AND PLAN: A 63-year-old gentleman is morbidly obese with a right leg wound. 1. Right leg wound. At this time, continue local wound care. He did have a bone scan yesterday did not show any signs of osteomyelitis. 2. At this point continue local wound care with Vashe wet-to-dry dressing changes and IV antibiotics. cc: Shaji Cobos MD
[2018-12-09] MEDS: TEFLARO 600 MG in NS 250 ML IV SCH (17:17)
[2018-12-09] MEDS ORDERED: LANTUS INSULIN SUBQ SCH (21:00)
--- NOTE | 2018-12-09 22:09 | PROGRESS NOTE ---
DATE: 12/09/2018 SUBJECTIVE: The patient is sitting up in bed resting comfortably. Complains of pain in his legs. OBJECTIVE: Vital Signs: Temperature 99.1 degrees, blood pressure 130/60, heart rate 89, respirations 20, O2 saturation 95% on room air. General: This is a morbidly obese male sitting up in bed in no acute distress. Heart: S1, S2 normal. Regular rate and rhythm. Lungs: Equal air entry bilaterally. No wheezing. No rales. Abdomen: Positive bowel sounds. Soft, nontender, nondistended. Extremities: 1+ edema. The patient has erythema involving both lower extremities with chronic venous stasis. Neurologic: The patient is alert and oriented x4. LABS: White blood cell count 5.8, hemoglobin 12, hematocrit 39, platelets 231,000. Sodium 136, potassium 3.6, chloride 92, CO2 29, BUN 19, creatinine 0.9. ASSESSMENT AND PLAN: 1. Bilateral lower extremity cellulitis, secondary to Staphylococcus aureus. Continue with antibiotic therapy and wound care as directed by the general surgery and Dr. Prather. 2. Morbid obesity. Aware. 3. Poorly controlled insulin-dependent diabetes mellitus. We will adjust the patient's insulin regimen. Will add Lantus at bedtime as well. 4. Benign prostatic hypertrophy. Continue on Flomax. 5. Chronic constipation. Continue with scheduled laxative therapy. 6. Deep vein thrombosis prophylaxis. Continue on Lovenox. cc: Gloria Waters MD
[2018-12-10] MEDS: LASIX IV SCH ×4 (02:00→20:22)
[2018-12-10] MEDS: TEFLARO 600 MG in NS 250 ML IV SCH (02:01)
[2018-12-10] MEDS: HUMULIN R SUBQ SCH ×4 (06:56→20:25)
[2018-12-10 08:11] LABS: AGAP 10; BUN 18 mg/dL (8-22); CALCIUM 8.5 mg/dL (8.8-10.2); CHLORIDE 92 mmol/L (98-107); COSMO 276; ESTIMATED GFR > 60; GLUCOSE 241 mg/dL (70-104); POTASSIUM 3.6 mmol/L (3.5-5.1); SODIUM 133 mmol/L (136-145); TCO2 31 mmol/L (25-35)
[2018-12-10] MEDS: ASPIRIN PO SCH (10:17)
[2018-12-10] MEDS: LANTUS INSULIN SUBQ SCH ×2 (10:18→20:26)
[2018-12-10] MEDS: MIRALAX PO SCH ×2 (10:18→20:21)
[2018-12-10] MEDS: ZEBETA PO SCH (10:18)
[2018-12-10] MEDS: FLOMAX PO SCH ×2 (10:18→20:25)
[2018-12-10] MEDS: THERA M PLUS PO SCH (10:18)
[2018-12-10] MEDS: HYDROCHLOROTHIAZIDE PO SCH (10:18)
[2018-12-10] MEDS: LOVENOX SUBQ SCH (10:18)
[2018-12-10] MEDS: MYCOSTATIN POWDER TOP SCH ×2 (10:19→20:26)
[2018-12-10] MEDS: DULCOLAX PR SCH ×2 (10:19→20:21)
[2018-12-10] MEDS: PATIENT'S OWN MED TOP SCH (10:19)
[2018-12-10] MEDS: PERCOCET-10 PO PRN ×3 (11:14→22:43)
[2018-12-10] MEDS: CUBICIN IV SCH (17:14)
[2018-12-10] MEDS: NS IV SCH (17:14)
--- NOTE | 2018-12-10 22:15 | INFECTIOUS DISEASE PROGRESS NO ---
DATE: 12/10/2018 PRESENT ILLNESS: Mr. Reese has bilateral lower extremity cellulitis with Enterococcus growing to both legs, as well as a gram-positive coccus which is growing to the right leg. There is no osteomyelitis per bone scan. MEDICATIONS: He has been receiving ceftaroline 600 mg IV every 12 hours. PHYSICAL EXAMINATION: Vital Signs: Temperature is 99 degrees, pulse rate 74, respiratory rate 14, blood pressure 135/59, O2 saturation is 95% on room air. General: This is a chronically ill- appearing, morbidly obese gentleman. He is sitting up in a chair, currently in no acute distress. HEENT: Atraumatic, normocephalic. Oral mucous membranes are pink and moist. Conjunctivae are pink. Neck: Supple. Trachea is midline. Cardiovascular: Heart rate and rhythm are regular. Normal sinus rhythm on the monitor. Respiratory: Lung sounds are clear to auscultation bilaterally. No work of breathing is noted. Abdomen: Soft, obese, nontender. Bowel sounds are active. Integumentary: Skin is warm and dry. He has erythema and dry peeling skin to his calves bilaterally with a dressing in place to the right calf, which is dry and intact. Neurologic: He is awake, alert, oriented, and is able to walk around the room with his walker and physical therapy. LABORATORY AND X-RAY: Today, there is no CBC, but yesterday, his white blood cell count was 5.88, hemoglobin 12.4, platelet count 231,000. Today, his creatinine is 1, with a estimated GFR of greater than 60. His right leg and left leg have both grown Enterococcal faecalis, and the right leg also has a gram-positive coccus which has yet to be identified. No imaging reports today. ASSESSMENT AND PLAN: Mr. Reese has an enterococcal cellulitis to his bilateral lower extremities. There is also gram-positive coccus growing on the right, which may end up being a methicillin- resistant Staphylococcus aureus since he has had a methicillin-resistant Staphylococcus aureus in the past. We will discontinue ceftaroline and start him on daptomycin, which will be 1200 mg IV daily. These plans have been discussed with and recommended by Dr. Prather. COMORBIDITIES: For Mr. Reese include, morbid obesity, previous methicillin-resistant Staphylococcus aureus infection, peripheral vascular disease, diabetes mellitus, lymphadenopathy, and gastroesophageal reflux disease. Dictated by WALTER Berger for Keny Prather MD cc: Keny Prather MD
--- NOTE | 2018-12-11 00:54 | PROGRESS NOTE ---
DATE: 12/10/2018 SUBJECTIVE: The patient is resting comfortably in bed. He states that the swelling in his legs has improved significantly. OBJECTIVE: Vital signs: Temperature 99 degrees, blood pressure 135/59, heart rate 85, respirations 15, O2 saturation 95% on room air. Intake 1.5 L, output 4.9 L.General: This is a morbidly obese male, sitting up in bed in no acute distress. Heart: S1, S2 normal. Regular rate and rhythm. Lungs: Equal air entry bilaterally. No wheezing. No rales. No rhonchi. Abdomen: Positive bowel sounds. Soft, nontender, nondistended. Extremities: The patient has erythema involving both lower extremities. He does have an ulceration on his right leg that is wrapped in a clean, dry dressing. He also has elephantiasis present. Neurologic: The patient is alert and oriented x4. LABORATORY DATA: Sodium 133, potassium 3.6, chloride 92, CO2 is 31, BUN 18, creatinine 1, glucose 241. ASSESSMENT AND PLAN: 1. Bilateral lower extremity cellulitis, with a wound to the right calf region. The wound culture is growing Enterococcus faecalis. The patient has been switched to daptomycin. Continue with wound care. 2. Uncontrolled insulin-dependent diabetes mellitus type 2. We will adjust the patient's Lantus dosage. 3. Hypertension. Continue on the current antihypertensive regimen. 4. Morbid obesity. Aware. 5. Chronic constipation. Continue on MiraLAX. 6. Benign prostatic hypertrophy. Continue on Flomax. 7. Volume overload, improved. We will transition the patient to oral Lasix. 8. Deep vein thrombosis prophylaxis. Continue on Lovenox. cc: Gloria Waters MD
[2018-12-11] MEDS: PERCOCET-10 PO PRN ×2 (05:35→11:38)
[2018-12-11] MEDS: HUMULIN R SUBQ SCH ×4 (06:09→20:31)
[2018-12-11 08:32] LABS: BASO# 0.02 X1000 (0.0-0.2); BASO% 0.4 % (0.0-0.8); EOS# 0.45 X1000 (0.0-0.7); EOS% 8.4 % (0.0-10.0); HEMATOCRIT 37.9 % (42.0-52.0); HEMOGLOBIN 12.1 g/dL (14.0-18.0); LYMPH# 1.82 X1000 (1.2-3.4); LYMPH% 34.1 % (20.5-51.1); MCH 28.3 PG (27-31); MCHC 31.9 g/dL (33-37); MCV 88.8 FL (81-99); MONO# 0.48 X1000 (0.11-0.59); MPV 10.2 FL (7.4-10.4); NEUT# 2.56 X1000 (1.4-6.5); NEUT% 48.1 % (42.2-75.2); PLT 235 X1000 (130-400); RBC 4.27 XMIL (4.7-6.1); RDW 13.8 % (11.5-14.5); WBC 5.33 X1000 (4.8-10.8)
[2018-12-11 08:40] LABS: AGAP 16; BUN 22 mg/dL (8-22); CALCIUM 8.8 mg/dL (8.8-10.2); CHLORIDE 92 mmol/L (98-107); COSMO 282; CREATININE 0.9 mg/dL (0.7-1.2); ESTIMATED GFR > 60; GLUCOSE 220 mg/dL (70-104); POTASSIUM 3.3 mmol/L (3.5-5.1); SODIUM 136 mmol/L (136-145); TCO2 28 mmol/L (25-35)
[2018-12-11] MEDS: MYCOSTATIN POWDER TOP SCH ×2 (09:18→20:32)
[2018-12-11] MEDS: MIRALAX PO SCH ×2 (09:18→20:29)
[2018-12-11] MEDS: DULCOLAX PR SCH ×2 (09:19→20:29)
[2018-12-11] MEDS: LOVENOX SUBQ SCH (09:20)
[2018-12-11] MEDS: ZEBETA PO SCH (09:20)
[2018-12-11] MEDS: FLOMAX PO SCH ×2 (09:20→20:30)
[2018-12-11] MEDS: ASPIRIN PO SCH (09:20)
[2018-12-11] MEDS: THERA M PLUS PO SCH (09:20)
[2018-12-11] MEDS: LANTUS INSULIN SUBQ SCH ×2 (09:20→20:31)
[2018-12-11] MEDS: LASIX PO SCH (09:20)
[2018-12-11] MEDS: HYDROCHLOROTHIAZIDE PO SCH (09:20)
--- NOTE | 2018-12-11 09:31 | GENERAL SURGERY PROGRESS NOTE ---
DATE: 12/11/2018 SUBJECTIVE: Patient seems to be doing okay. OBJECTIVE: Vital Signs: Patient is currently afebrile. His vital signs are stable. General exam: No acute distress. HEENT: Normocephalic, atraumatic. Pupils equal, round, and reactive to light. Mucous membranes moist. Oropharynx benign. Neck: Supple. Trachea midline. Cardiovascular: Regular rate and rhythm. Lungs: Grossly clear. Abdomen: Soft. Obese. Extremities: Wound to the right lower extremity. Overall, seems to be improving. There is still significant swelling and lymphedema, but the wound itself appears to have good granulation tissue without any kind of expressible purulence at this time. Vascular: All extremities perfused. Neurologic: Grossly intact. Skin: As noted above. LABORATORY DATA: None this morning as of yet. ASSESSMENT AND PLAN: A 63-year-old gentleman with right leg wound and lymphedema. Right leg wound. At this time, continue local wound care with no signs of osteomyelitis who probably needs some degree of lymphedema therapy but we could do this once he is out of the hospital. cc: Shaji Cobos MD
[2018-12-11] MEDS ORDERED: KLOR-CON PO ONE (09:38)
[2018-12-11] MEDS: PATIENT'S OWN MED TOP SCH (09:46)
--- NOTE | 2018-12-11 12:46 | PROGRESS NOTE ---
DATE: 12/11/2018 SUBJECTIVE: The patient is resting comfortably in bed. He feels that his legs are doing better. He does state that he has significant pain with dressing changes. OBJECTIVE: Vital signs: Blood pressure is 147/67, heart rate of 77, respirations 18, temperature is 97.9 degrees oral with room air saturations 94 to 97 percent. General: This is a morbidly obese, 63-year-old gentleman who is sitting up in the bed watching TV in no distress. Cardiovascular: Regular rate and rhythm. S1 and S2 appreciated. No murmurs. Pulmonary: Breath sounds are clear. No increased work of breathing noted. Chest rises and falls symmetric respiration. Chest wall is nontender to palpation. Gastrointestinal: Abdomen is large, soft, nontender, nondistended with bowel sounds in all 4 quadrants. Extremities: The patient has erythema noted to bilateral lower extremities with ulcerations on his right leg that are wrapped. Elephantiasis is present. Neurologic: He is alert and oriented x3. LABORATORY DATA: WBC is 5.3 with hemoglobin 12.1, hematocrit 37.9, and platelets of 235,000. Sodium 136, potassium 3.3, BUN 22, creatinine 0.9 with a glucose of 203. ASSESSMENT AND PLAN: 1. Bilateral lower extremity cellulitis with a right calf wound growing Enterococcus faecalis. We will continue daptomycin and wound care. 2. Hypertension. We will continue with his current regimen. 3. Uncontrolled insulin-dependent diabetes mellitus. Continue with his current regimen. 4. Morbid obesity. Aware. 5. Chronic constipation. Continue MiraLAX. Of note, the patient did have 2 bowel movements in the last 24 hours. 6. Benign prostatic hypertrophy. We will continue Flomax. 7. Volume overload, cumulative. The patient is [id number] mL negative. We will continue with his current regimen. 8. Deep venous thrombosis prophylaxis. We will continue Lovenox. Dictated by WALTER Holcomb for Gloria Waters MD cc: WALTER Holcomb MD [facility]
[2018-12-11] MEDS: NS IV SCH (15:08)
[2018-12-11] MEDS: DILAUDID IV PRN (15:08)
[2018-12-11] MEDS: CUBICIN IV SCH (15:08)
[2018-12-12] MEDS: DILAUDID IV PRN ×3 (05:53→21:21)
[2018-12-12] MEDS: HUMULIN R SUBQ SCH ×5 (06:01→21:22)
--- NOTE | 2018-12-12 07:40 | Extremity Venous Study ---
PROCEDURE NAME: Venous U/S Bilateral Legs - 12/08/2018 BILATERAL LOWER EXTREMITY VENOUS DUPLEX STUDY: REFERRING PHYSICIAN: Dr. Collier. READING PHYSICIAN: Dr. Sami Patel. PELOTA MAKER: Micha. INDICATION: Leg swelling. FINDINGS: The deep and superficial veins of both lower extremities were imaged throughout their course. They are compressible, patent and without thrombus. INTERPRETATION: No DVT or SVT of either lower extremity. cc: MD Amy Chang CRNP
[2018-12-12 07:45] LABS: AGAP 15; BUN 20 mg/dL (8-22); CALCIUM 9.1 mg/dL (8.8-10.2); CHLORIDE 96 mmol/L (98-107); COSMO 279; CREATININE 0.8 mg/dL (0.7-1.2); ESTIMATED GFR > 60; GLUCOSE 187 mg/dL (70-104); SODIUM 136 mmol/L (136-145); TCO2 25 mmol/L (25-35)
[2018-12-12 08:04] LABS: MAGNESIUM 2.1 mg/dL (1.5-2.7); PHOSPHORUS 2.8 mg/dL (2.7-4.5)
[2018-12-12] MEDS: ASPIRIN PO SCH (10:13)
[2018-12-12] MEDS: FLOMAX PO SCH ×2 (10:13→21:21)
[2018-12-12] MEDS: MYCOSTATIN POWDER TOP SCH ×2 (10:13→21:45)
[2018-12-12] MEDS: LANTUS INSULIN SUBQ SCH ×2 (10:13→21:22)
[2018-12-12] MEDS: LASIX PO SCH (10:13)
[2018-12-12] MEDS: HYDROCHLOROTHIAZIDE PO SCH (10:13)
[2018-12-12] MEDS: ZEBETA PO SCH (10:13)
[2018-12-12] MEDS: THERA M PLUS PO SCH (10:13)
[2018-12-12] MEDS: MIRALAX PO SCH ×2 (10:13→21:27)
[2018-12-12] MEDS: LOVENOX SUBQ SCH (10:13)
[2018-12-12] MEDS: PATIENT'S OWN MED TOP SCH (10:14)
[2018-12-12] MEDS: DULCOLAX PR SCH ×2 (10:14→21:22)
[2018-12-12] MEDS: CUBICIN IV SCH (15:49)
[2018-12-12] MEDS: NS IV SCH (15:49)
--- NOTE | 2018-12-12 16:16 | INFECTIOUS DISEASE PROGRESS NO ---
DATE: 12/12/2018 PRESENT ILLNESS: Mr. Reese is being treated for bilateral lower extremity cellulitis with enterococcus and Streptococcus mitis/Streptococcus oralis growing. MEDICATIONS: He is receiving daptomycin 1200 mg IV daily. PHYSICAL EXAMINATION: Vital Signs: Temperature is 98.2 degrees, pulse rate 81, respiratory rate 20, blood pressure 142/65. O2 saturation is 98% on room air. General: This is a morbidly obese, chronically ill-appearing, middle-aged gentleman. He is lying in bed, currently in no acute distress. HEENT: Atraumatic, normocephalic. Oral mucous membranes are pink and moist. Conjunctivae are pink. Neck: Supple. Trachea is midline. Cardiovascular: Heart rate and rhythm are regular. Normal sinus rhythm on the monitor. Respiratory: Lung sounds are clear in the upper lobes bilaterally and diminished in the mid and bases. No work of breathing is noted. Abdomen: Soft, obese, nontender. Bowel sounds are active. Integumentary: Skin is warm and dry with erythema and dry peeling skin to his bilateral calves. There is a dressing in place to the right calf which is just recently put on but not removed at this time. Neurologic: He is awake, alert, oriented, and able to get up and around with assistance. LABORATORY AND X-RAY: No CBC today. However, his creatinine is 0.8. Estimated GFR is greater than 60. Yesterday his white count was 5.33 and hemoglobin 12.1 with a platelet count of 235,000. No imaging reports today. ASSESSMENT AND PLAN: Mr. Reese is receiving daptomycin for bilateral lower extremity cellulitis with a streptococcal and enterococcal infection. Today the wound care nurse has changed the dressing, and the patient states that she is happy with his progress. For now, we will continue daptomycin as ordered. The plan is to try to get him to rehab, and hopefully he can go somewhere where he can continue to receive daptomycin. These plans have been discussed with and recommended by Dr. Prather. COMORBIDITIES: For Mr. Reese include morbid obesity, peripheral vascular disease, diabetes mellitus, lymphadenopathy, and gastroesophageal reflux disease. Dictated by WALTER Berger for Keny Prather MD cc: Keny Prather MD [facility]
[2018-12-12] MEDS: PERCOCET-10 PO PRN (18:50)
[2018-12-13] MEDS: DILAUDID IV PRN ×2 (05:07→15:30)
[2018-12-13] MEDS: HUMULIN R SUBQ SCH ×4 (06:04→21:27)
[2018-12-13 08:01] LABS: BASO# 0.03 X1000 (0.0-0.2); BASO% 0.5 % (0.0-0.8); EOS# 0.43 X1000 (0.0-0.7); EOS% 6.8 % (0.0-10.0); HEMATOCRIT 39.2 % (42.0-52.0); HEMOGLOBIN 12.6 g/dL (14.0-18.0); IMM GRAN# 0.02 X1000 (0.0-0.04); IMM GRAN% 0.3 % (0.0-0.5); LYMPH# 2.61 X1000 (1.2-3.4); MCH 28.4 PG (27-31); MCHC 32.1 g/dL (33-37); MCV 88.5 FL (81-99); MONO# 0.53 X1000 (0.11-0.59); MONO% 8.3 % (1.7-9.3); NEUT# 2.75 X1000 (1.4-6.5); NEUT% 43.1 % (42.2-75.2); PLT 245 X1000 (130-400); RBC 4.43 XMIL (4.7-6.1); RDW 13.6 % (11.5-14.5); WBC 6.37 X1000 (4.8-10.8)
[2018-12-13 08:28] LABS: MAGNESIUM 2.1 mg/dL (1.5-2.7); PHOSPHORUS 3.3 mg/dL (2.7-4.5)
[2018-12-13 08:32] LABS: AGAP 13; BUN 19 mg/dL (8-22); CALCIUM 9.4 mg/dL (8.8-10.2); CHLORIDE 96 mmol/L (98-107); COSMO 280; CREATININE 0.9 mg/dL (0.7-1.2); ESTIMATED GFR > 60; GLUCOSE 175 mg/dL (70-104); POTASSIUM 3.9 mmol/L (3.5-5.1); SODIUM 137 mmol/L (136-145); TCO2 28 mmol/L (25-35)
[2018-12-13] MEDS: THERA M PLUS PO SCH (09:24)
[2018-12-13] MEDS: LASIX PO SCH (09:24)
[2018-12-13] MEDS: HYDROCHLOROTHIAZIDE PO SCH (09:24)
[2018-12-13] MEDS: MIRALAX PO SCH ×2 (09:24→21:26)
[2018-12-13] MEDS: LOVENOX SUBQ SCH (09:25)
[2018-12-13] MEDS: ZEBETA PO SCH (09:25)
[2018-12-13] MEDS: LANTUS INSULIN SUBQ SCH ×2 (09:25→21:28)
[2018-12-13] MEDS: DULCOLAX PR SCH ×2 (09:25→21:25)
[2018-12-13] MEDS: FLOMAX PO SCH ×2 (09:25→21:26)
[2018-12-13] MEDS: MYCOSTATIN POWDER TOP SCH ×2 (09:25→21:34)
[2018-12-13] MEDS: ASPIRIN PO SCH (09:25)
[2018-12-13] MEDS: PATIENT'S OWN MED TOP SCH (09:26)
[2018-12-13] MEDS: PERCOCET-10 PO PRN ×2 (09:28→21:26)
--- NOTE | 2018-12-13 14:27 | GENERAL SURGERY PROGRESS NOTE ---
DATE: 12/13/2018 SUBJECTIVE: No fevers, no tachycardia overnight. He feels better, says his legs are less painful. He has a dressing on his right calf. Chronic thickening and edema consistent with chronic lymphedema. White count 6, hematocrit 39, creatinine 0.9. I reviewed his glucoses. ASSESSMENT AND PLAN: A 63-year-old gentleman with right leg wound. We will continue local wound care. He is on antibiotics and management of his lymphedema. We will need to resume compression pending the more aggressive wound care. He is on Lasix. cc: Mary Gonzalez MD
[2018-12-13] MEDS: CUBICIN IV SCH (15:30)
[2018-12-13] MEDS: NS IV SCH (15:30)
--- NOTE | 2018-12-13 16:11 | PROGRESS NOTE ---
DATE: 12/13/2018 SUBJECTIVE: The patient is sitting up in bed, resting comfortably. He states that his legs feel a lot better since all the fluid has been removed. OBJECTIVE: Vital Signs: Temperature 98.3 degrees, blood pressure 134/63, heart rate 75, respirations 18, O2 saturation 94% on room air. General: This is a morbidly obese male lying in bed, in no acute distress. Heart: S1, S2 normal. Regular rate and rhythm. Lungs: Clear to auscultation bilaterally. Abdomen: Positive bowel sounds. Soft, obese, nontender, nondistended. Extremities: The patient has erythema involving both legs, plus chronic lymphedema. He also has an ulceration on his right lower leg. Neurologic: The patient is alert and oriented x4. LABS: White blood cell count 6.3, hemoglobin 12, hematocrit 39, platelets 245,000. Sodium 137, potassium 3.9, chloride 96, CO2 28, BUN 19, creatinine 0.9, glucose 175. ASSESSMENT AND PLAN: 1. Bilateral lower extremity cellulitis with chronic lymphedema and a wound to the right calf. Continue with the current antibiotic regimen as directed by Dr. Prather. Continue with wound care. 2. Uncontrolled insulin-dependent diabetes mellitus type 2. The patient's Levemir was increased to 85 units during the day 2 days ago. We will continue on this current dosage. Also continue with Levemir 40 units at bedtime. 3. Hypertension. Stable. 4. Morbid obesity. Aware. 5. Chronic constipation. Continue on MiraLAX. 6. Benign prostatic hypertrophy. Continue on Flomax. 7. Volume overload. Improved. Continue on oral Lasix. 8. Deep vein thrombosis prophylaxis. Continue on Lovenox. 9. Disposition. We are currently waiting for acceptance to inpatient rehab for the patient. cc: Gloria Waters MD
[2018-12-14] MEDS: DILAUDID IV PRN ×2 (05:35→15:41)
[2018-12-14] MEDS: HUMULIN R SUBQ SCH ×3 (06:10→21:31)
[2018-12-14] MEDS: HUMALOG SUBQ SCH ×2 (06:10→11:40)
[2018-12-14 08:35] LABS: AGAP 15; BUN 19 mg/dL (8-22); CHLORIDE 98 mmol/L (98-107); COSMO 277; CREATININE 0.8 mg/dL (0.7-1.2); ESTIMATED GFR > 60; GLUCOSE 180 mg/dL (70-104); POTASSIUM 4.2 mmol/L (3.5-5.1); SODIUM 135 mmol/L (136-145); TCO2 22 mmol/L (25-35)
[2018-12-14] MEDS: FLOMAX PO SCH ×2 (09:59→21:30)
[2018-12-14] MEDS: HYDROCHLOROTHIAZIDE PO SCH (09:59)
[2018-12-14] MEDS: THERA M PLUS PO SCH (09:59)
[2018-12-14] MEDS: LASIX PO SCH (09:59)
[2018-12-14] MEDS: ASPIRIN PO SCH (09:59)
[2018-12-14] MEDS: MIRALAX PO SCH ×2 (09:59→21:30)
[2018-12-14] MEDS: LOVENOX SUBQ SCH (09:59)
[2018-12-14] MEDS: ZEBETA PO SCH (09:59)
[2018-12-14] MEDS: PERCOCET-10 PO PRN ×2 (09:59→21:30)
[2018-12-14] MEDS: MYCOSTATIN POWDER TOP SCH ×2 (10:00→21:34)
[2018-12-14] MEDS: LANTUS INSULIN SUBQ SCH ×2 (10:00→21:30)
[2018-12-14] MEDS: DULCOLAX PR SCH ×2 (10:00→21:18)
[2018-12-14] MEDS: PATIENT'S OWN MED TOP SCH (10:01)
--- NOTE | 2018-12-14 11:12 | GENERAL SURGERY PROGRESS NOTE ---
DATE: 12/14/2018 SUBJECTIVE: Doing okay. Sitting in chair. We are planning consultation. He has been given a suppository. OBJECTIVE: Dressing clean on his leg. Nurse no tachycardia. Reviewed his labs. ASSESSMENT AND PLAN: A 63-year-old gentleman with lymphedema, right lower extremity leg wound. He is on antibiotics. We will continue local wound care and medical management. cc: Mary Gonzalez MD MTDD
[2018-12-14] MEDS ORDERED: VITAMIN D PO SCH (11:15)
[2018-12-14] MEDS: NS IV SCH (15:40)
[2018-12-14] MEDS: CUBICIN IV SCH (15:40)
--- NOTE | 2018-12-14 18:22 | PROGRESS NOTE ---
DATE: 12/14/2018 SUBJECTIVE: The patient is sitting up in bed resting. He has no complaints. OBJECTIVE: Vital Signs: Temperature 98.1 degrees, blood pressure 137/74, heart rate 72, respirations 19, O2 saturations 100% on room air. General: This is a morbidly obese male sitting up in bed in no acute distress. Heart: S1, S2 normal. Regular rate and rhythm. Lungs: Equal air entry bilaterally. No wheezing. No rales. No rhonchi. Abdomen: Positive bowel sounds. Soft, nontender, nondistended. Extremities: The patient has erythema involving both lower extremities with superimposed on chronic lymphedema. Neurologic: The patient is alert and oriented x4. LABORATORY DATA: Labs reviewed. ASSESSMENT AND PLAN: 1. Bilateral lower extremity cellulitis with chronic lymphedema and a wound to the right calf. Continue with antibiotic therapy plus wound care. 2. Uncontrolled insulin-dependent diabetes mellitus type 2. The patient's Lantus dosage was increased to 90 units during the day, and premeal insulin was also initiated today. We will monitor the patient's response. 3. Morbid obesity. The patient has been counseled about weight loss and proper diet. 4. Volume overload. Improved. Continue on oral Lasix. 5. Benign prostatic hypertrophy. Continue on Flomax. 6. Chronic constipation. Continue on MiraLAX. 7. Hypertension. Stable. 8. Deep vein thrombosis prophylaxis. Continue on Lovenox. 9. Disposition. Covered Buckle Assembler is working on inpatient rehab placement for the patient. cc: Gloria Waters MD
[2018-12-15] MEDS: DILAUDID IV PRN ×3 (05:11→15:12)
--- NOTE | 2018-12-15 05:17 | PROGRESS NOTE ---
DATE: 12/12/2018 SUBJECTIVE: The patient is resting comfortably. He has no complaints. The swelling in his legs is improving. OBJECTIVE: Vital Signs: Temperature 98.3 degrees, blood pressure 137/64, heart rate 74, respirations 19, O2 saturation 98% on room air. General: This is a morbidly obese male, lying in bed in no acute distress. Heart: S1, S2 normal. Regular rate and rhythm. Lungs: Clear to auscultation bilaterally. Abdomen: Positive bowel sounds. Soft, nontender, nondistended. Extremities: The patient has an ulceration on his right leg that is wrapped in a clean dry dressing. There is erythema involving both lower extremities plus chronic lymphedema. Neurologic: The patient is alert and oriented x4. LABS: Sodium 136, potassium 4, chloride 96, CO2 25, BUN 20, creatinine 0.8, glucose 187. ASSESSMENT AND PLAN: 1. Bilateral lower extremity cellulitis with a wound to the right calf region. Continue with antibiotic therapy and wound care. 2. Insulin-dependent diabetes mellitus type 2. Continue on Lantus plus sliding scale insulin. 3. Hypertension. Continue on the current antihypertensive regimen. 4. Morbid obesity. Aware. 5. Chronic constipation. Continue on MiraLAX. 6. Volume overload. Continue on oral Lasix. 7. Benign prostatic hypertrophy. Continue on Flomax. 8. Deep vein thrombosis prophylaxis. Continue on Lovenox. 9. Disposition. Continue with physical therapy. Service Associate is working on inpatient rehab placement for the patient. cc: Gloria Waters MD
[2018-12-15] MEDS: HUMULIN R SUBQ SCH ×4 (06:00→21:17)
[2018-12-15] MEDS: HUMALOG SUBQ SCH ×3 (06:00→16:41)
--- NOTE | 2018-12-15 06:27 | GENERAL SURGERY PROGRESS NOTE ---
DATE: 12/15/2018 SUBJECTIVE: Patient seems to be doing okay. OBJECTIVE: Vital Signs: Patient is currently afebrile. His vital signs are stable. General: No acute distress. HEENT: Normocephalic, atraumatic. Pupils equal, round, and reactive to light. Mucous membranes moist. Oropharynx benign. Neck: Supple. Trachea midline. Cardiovascular: Regular rate and rhythm. Lungs: Grossly clear. Abdomen: Soft. Obese, but nontender. Extremities: Wound to right lower extremities seems to be improving. He still has significant lymphatic issues with both legs. Skin: As noted above. Vascular: All extremities perfused. Neurologic: Grossly intact. ASSESSMENT AND PLAN: A 63-year-old male with right leg wound with lymphedema. Right leg wound. At this time, it seems to be improving. Continue local wound care. We will put him in compression stockings to see if it is going to help get some of the fluid off. He probably eventually will need lymphedema pumps, but otherwise we will continue current treatment. Hopefully, he can be transferred to another rehab facility here soon. cc: Shaji Cobos MD
[2018-12-15 08:05] LABS: AGAP 10; BUN 19 mg/dL (8-22); CALCIUM 9.4 mg/dL (8.8-10.2); CHLORIDE 97 mmol/L (98-107); COSMO 272; CREATININE 0.9 mg/dL (0.7-1.2); ESTIMATED GFR > 60; GLUCOSE 164 mg/dL (70-104); POTASSIUM 4.1 mmol/L (3.5-5.1); SODIUM 133 mmol/L (136-145); TCO2 26 mmol/L (25-35)
[2018-12-15] MEDS: FLOMAX PO SCH ×2 (08:50→20:48)
[2018-12-15] MEDS: ZEBETA PO SCH (08:50)
[2018-12-15] MEDS: ASPIRIN PO SCH (08:52)
[2018-12-15] MEDS: THERA M PLUS PO SCH (08:52)
[2018-12-15] MEDS: DULCOLAX PR SCH ×2 (08:54→20:49)
[2018-12-15] MEDS: MIRALAX PO SCH ×2 (08:54→22:10)
[2018-12-15] MEDS: HYDROCHLOROTHIAZIDE PO SCH (08:54)
[2018-12-15] MEDS: LANTUS INSULIN SUBQ SCH ×2 (08:54→20:49)
[2018-12-15] MEDS: LOVENOX SUBQ SCH (08:54)
[2018-12-15] MEDS: LASIX PO SCH (08:54)
[2018-12-15] MEDS: MYCOSTATIN POWDER TOP SCH ×2 (09:00→20:53)
[2018-12-15] MEDS: PATIENT'S OWN MED TOP SCH (11:19)
--- NOTE | 2018-12-15 13:05 | PROGRESS NOTE ---
DATE: 12/15/2018 SUBJECTIVE: The patient is resting comfortably in bed. He has no complaints. OBJECTIVE: Vital Signs: Temperature 97.8 degrees, blood pressure 160/63, heart rate 62, respirations 18, O2 saturation 95% on room air. General: This is an elderly male, lying in bed in no acute distress. Heart: S1, S2 normal. Regular rate and rhythm. Lungs: Clear to auscultation bilaterally. Abdomen: Positive bowel sounds. Soft, obese, nontender, nondistended. Extremities: The patient has erythema and chronic lymphedema involving both lower extremities. He also has an ulceration on the right lower aspect of his leg that is wrapped in a clean, dry dressing. Neurologic: The patient is alert and oriented x4. LABORATORY DATA: Sodium 133, potassium 4.1, chloride 97, CO2 of 26, BUN 19, creatinine 0.9, glucose 164. ASSESSMENT AND PLAN: 1. Bilateral lower extremity cellulitis with chronic lymphedema and wound to the right calf. Continue with wound care and antibiotic therapy. 2. Uncontrolled insulin-dependent diabetes mellitus type 2. Continue with Lantus and sliding scale insulin, plus premeal insulin. 3. Morbid obesity. Aware. The patient has been counseled about weight loss and proper diet. 4. Volume overload. Continue on oral Lasix. 5. Vitamin D deficiency. Continue with vitamin D replacement. 6. Benign prostatic hypertrophy. Continue on Flomax. 7. Chronic constipation. Continue on MiraLAX. 8. Hypertension. Stable. 9. Deep vein thrombosis prophylaxis. Continue on Lovenox. 10. Disposition. The patient wants to go to LTAC since he will need IV antibiotic therapy upon discharge. cc: Gloria Waters MD [facility]
[2018-12-15] MEDS: PERCOCET-10 PO PRN (13:40)
--- NOTE | 2018-12-15 14:54 | EKG Report ---
Test Performed on : 12/06/2018 9:34:14 PM Test Reason : Ekg Held on Machine Blood Pressure : / mmHG Vent. Rate : 089 BPM Atrial Rate : 089 BPM P-R Int : 190 ms QRS Dur : 096 ms QT Int : 384 ms P-R-T Axes : 052 -05 046 degrees QTc Int : 467 ms Normal sinus rhythm. Normal ECG No previous ECGs available Confirmed by Kvng TOWNSEND, Zeferino Mccracken ([id number]) on 12/16/2018 7:38:44 AM
[2018-12-15] MEDS: CUBICIN IV SCH (15:51)
[2018-12-15] MEDS: NS IV SCH (15:51)
--- NOTE | 2018-12-16 00:32 | INFECTIOUS DISEASE PROGRESS NO ---
DATE: 12/15/2018 PRESENT ILLNESS: The patient has bilateral lower extremity cellulitis. From the patient's left leg enterococcus and Streptococcus were isolated. A urine culture was negative and blood cultures were negative. MEDICATIONS: The patient is receiving daptomycin 1200 mg IV every 24 hours. PHYSICAL EXAMINATION: Vital Signs: Temperature is 98.3 degrees, pulse 79, respirations 20, blood pressure 141/59. General: This is a morbidly obese, chronically ill-appearing, middle-aged male. He is in no acute distress. Head, eyes, ears, nose, and throat: He can hear my spoken words and see near objects. He does not have any white coating on his tongue. Neck: No pain with movement. Cardiovascular: Heart rate is regular. Lungs: Clear to auscultation. Abdomen: Soft and nontender. Extremities: Both legs are erythematous, indurated and edematous. The right leg has an ulcerated wound. The wound does not seem to be any smaller. There is no purulence coming from the wound however. Neurologic: The patient is alert. He can move his extremities. There is no tremor. LAB AND X-RAY: There is no new radiographic study. The CBC shows a white count of 6370, hemoglobin is 12.6, platelet count is 245,000. Creatinine is 0.9. GFR is greater than 60. CK is 57. The patient's seek CK was 57. ASSESSMENT AND PLAN: The patient is morbidly obese. He has bilateral lower extremity cellulitis with a deep wound in the right leg that has not been able to be healed. I discussed with the patient going home or going to an LTAC and both he and I favor him going to an LTAC so he can continue to get his IV antibiotic and also his wound care. COMORBIDITIES: The patient is morbidly obese. He also has peripheral vascular disease, diabetes mellitus, and gastroesophageal reflux disease. cc: Keny Prather MD
[2018-12-16] MEDS: DILAUDID IV PRN (06:32)
[2018-12-16] MEDS: HUMALOG SUBQ SCH ×3 (06:32→16:39)
[2018-12-16] MEDS: HUMULIN R SUBQ SCH ×4 (06:33→20:40)
[2018-12-16 07:04] LABS: BASO# 0.02 X1000 (0.0-0.2); BASO% 0.3 % (0.0-0.8); EOS# 0.49 X1000 (0.0-0.7); EOS% 7.4 % (0.0-10.0); HEMATOCRIT 38.8 % (42.0-52.0); HEMOGLOBIN 12.4 g/dL (14.0-18.0); IMM GRAN# 0.04 X1000 (0.0-0.04); IMM GRAN% 0.6 % (0.0-0.5); LYMPH% 33.1 % (20.5-51.1); MCH 28.2 PG (27-31); MCV 88.2 FL (81-99); MONO# 0.55 X1000 (0.11-0.59); MONO% 8.3 % (1.7-9.3); MPV 10.3 FL (7.4-10.4); NEUT# 3.34 X1000 (1.4-6.5); NEUT% 50.3 % (42.2-75.2); PLT 217 X1000 (130-400); RDW 13.9 % (11.5-14.5); WBC 6.64 X1000 (4.8-10.8)
[2018-12-16 07:13] LABS: AGAP 14; BUN 19 mg/dL (8-22); CALCIUM 8.9 mg/dL (8.8-10.2); CHLORIDE 97 mmol/L (98-107); COSMO 279; CREATININE 0.8 mg/dL (0.7-1.2); ESTIMATED GFR > 60; GLUCOSE 193 mg/dL (70-104); SODIUM 136 mmol/L (136-145); TCO2 25 mmol/L (25-35)
[2018-12-16] MEDS: ZEBETA PO SCH (09:39)
[2018-12-16] MEDS: ASPIRIN PO SCH (09:39)
[2018-12-16] MEDS: THERA M PLUS PO SCH (09:39)
[2018-12-16] MEDS: LANTUS INSULIN SUBQ SCH ×2 (09:40→20:40)
[2018-12-16] MEDS: HYDROCHLOROTHIAZIDE PO SCH (09:40)
[2018-12-16] MEDS: FLOMAX PO SCH ×2 (09:40→20:40)
[2018-12-16] MEDS: LASIX PO SCH (09:40)
[2018-12-16] MEDS: LOVENOX SUBQ SCH (09:40)
[2018-12-16] MEDS: DULCOLAX PR SCH ×2 (09:40→22:14)
[2018-12-16] MEDS: MIRALAX PO SCH ×2 (09:40→22:14)
[2018-12-16] MEDS: MYCOSTATIN POWDER TOP SCH ×2 (09:41→20:41)
[2018-12-16] MEDS: PATIENT'S OWN MED TOP SCH (09:41)
[2018-12-16] MEDS: PERCOCET-10 PO PRN ×3 (10:10→22:13)
[2018-12-16] MEDS ORDERED: NORCO-7.5 PO PRN (13:02)
--- NOTE | 2018-12-16 15:16 | ECHO REPORT ---
ORDER DATE: 12/16/2018 INDICATION: Dyspnea, volume overload. FINDINGS: 1. Right atrium appears normal in size at 2.9 cm. 2. Trace tricuspid regurgitation. 3. Normal RV size and systolic function. 4. No significant pulmonic insufficiency. 5. Mild to moderate left atrial enlargement with a volume index of 34. 6. No mitral prolapse. No significant mitral stenosis. No significant mitral regurgitation. 7. Normal LV size, end-diastolic dimension of 4.7. Moderate left ventricular hypertrophy. Posterior and interventricular septal wall thickness 1.2 and 1.6 cm respectively. Normal LV systolic function. Estimated EF of 60 to 65% with normal wall motion. 8. Aortic valve opens well. No evidence of stenosis or insufficiency. 9. Aorta appears normal, visualized segments. 10. No pericardial effusion seen. cc: Bandar Conn MD
--- NOTE | 2018-12-16 15:57 | INFECTIOUS DISEASE PROGRESS NO ---
DATE: 12/16/2018 PRESENT ILLNESS: The patient has bilateral lower extremity cellulitis. He has grown Enterococcus and Streptococcus from the leg. MEDICATIONS: The patient is on daptomycin. PHYSICAL EXAMINATION: Vital Signs: Temperature is 98.2 degrees, pulse 78, respirations 20, blood pressure 145/63. General: This is a morbidly obese, chronically ill-appearing, middle-aged male. He is in no acute distress. Head, eyes, ears, nose, and throat: He can hear my spoken words and see near objects. He does not have any white patches in his mouth. Neck: No pain with movement of his neck. Cardiovascular: Heart rate is regular. I did not hear a murmur. Lungs: There were diminished breath sounds in the bases. I did not hear any rales. Abdomen: Soft, obese, and nontender. Extremities: Both legs continued to have induration, erythema, and severe crusting. They are, however, gradually getting better than they were when the patient came in. Neurologic: The patient is alert. He can move his extremities. He can ambulate. He does not have a tremor. LAB AND X-RAY: CBC shows a white count of 6640, hemoglobin 12.4, and platelet count 217,000. Creatinine 0.8. GFR is greater than 60. ASSESSMENT AND PLAN: Patient has bilateral leg cellulitis. The LTAC has refused the patient on daptomycin. I have switched him to Zosyn which I think should provide good coverage for the enterococcus and Streptococcus isolated from the patient's legs. Some of the side effects of Zosyn including rash and diarrhea have been explained to the patient, who agrees with treatment. COMORBIDITIES: Morbid obesity, peripheral vascular disease, diabetes mellitus, and gastroesophageal reflux disease. cc: Keny Prather MD
[2018-12-16] MEDS: ZOSYN 4.5 GM in NS 100 ML IV SCH ×2 (16:38→22:14)
--- NOTE | 2018-12-16 18:48 | PROGRESS NOTE ---
DATE: 12/16/2018 INTERVAL HISTORY: The patient's lower extremity wound remains stable. Lower extremity edema, improving slowly to some degree. No acute events overnight. No new complaints. REVIEW OF SYSTEMS: Twelve point review of systems negative except as per interval history. LABS: CBC 6.6, hemoglobin 12.4, hematocrit 38.8, platelets 217,000. Basic metabolic panel unremarkable aside from hyperglycemia. Glucose 180 to 205. VITALS: T-max 98.3 degrees, pulse 81, respirations 18, blood pressure 161/66, O2 saturation 94% on room air. PHYSICAL EXAMINATION: General: No acute distress. Vitals: As above. HEENT: Normocephalic, atraumatic. Moist mucous membranes. No cervical adenopathy. Cardiovascular: Regular rate and rhythm. No murmurs noted. Pulmonary: Clear to auscultation within the limits of body habitus. Abdomen: Soft, obese, nontender, nondistended. Bowel sounds positive. Extremities: Peripheral pulses decreased but present. Severe chronic lymphedema, stable. Erythema improving slowly. Fairly deep ulcer on right anterior lower leg packed and bandaged. Neurologic: Cranial nerves grossly intact. Mild global weakness, but no focal deficits. Psychiatric: Normal mood and affect. Awake, alert, oriented x3. Skin: No new rashes or lesions identified. Chronic lymphedema and ulceration as above. ASSESSMENT AND PLAN: 1. Bilateral lower extremity cellulitis superimposed on chronic lymphedema. Small wound to the right lower extremity. Continue wound care. The patient on antibiotics with daptomycin up to this point. Discussed with ID given sensitivities and difficulty with daptomycin and getting patient to a facility changing him to Zosyn. The plan is to continue Zosyn. 2. Diabetes mellitus. Control not terrible, but not ideal. Given the patient on pretty low sliding scale for the amount of basal insulin that he is on, we will go up and sliding scale some and see if that helps get a little better control. 3. Morbid obesity. The patient has been counseled on weight loss and exercise and diet. 4. Benign prostatic hypertrophy. Continue Flomax. 5. Chronic constipation, stable on MiraLAX. 6. Hypertension reasonable control on current regimen. Continue. 7. Elevated BNP. Last echocardiogram not a great study, but no clear sign of CHF. Patient has had elevated BNP and signs of volume overload, which may be related to his lymphedema, but we will go ahead and recheck echo to evaluate for underlying heart failure. DISPOSITION: Trying to get patient into long-term assisted care for wound care, IV antibiotics and therapy. Antibiotics adjusted as above. Awaiting decision from long-term assisted care.
[2018-12-17] MEDS: PERCOCET-10 PO PRN ×2 (05:47→11:16)
[2018-12-17] MEDS: ZOSYN 4.5 GM in NS 100 ML IV SCH ×2 (06:39→16:17)
[2018-12-17] MEDS: HUMULIN R SUBQ SCH ×4 (10:56→21:22)
[2018-12-17] MEDS: HUMALOG SUBQ SCH ×3 (10:56→17:33)
[2018-12-17] MEDS: DULCOLAX PR SCH ×2 (10:57→21:23)
[2018-12-17] MEDS: MIRALAX PO SCH ×2 (10:58→21:23)
[2018-12-17] MEDS: FLOMAX PO SCH ×2 (11:00→21:22)
[2018-12-17] MEDS: ZEBETA PO SCH (11:00)
[2018-12-17] MEDS: HYDROCHLOROTHIAZIDE PO SCH (11:00)
[2018-12-17] MEDS: THERA M PLUS PO SCH (11:01)
[2018-12-17] MEDS: LANTUS INSULIN SUBQ SCH ×2 (11:01→21:22)
[2018-12-17] MEDS: LASIX PO SCH (11:01)
[2018-12-17] MEDS: LOVENOX SUBQ SCH (11:02)
[2018-12-17] MEDS: MYCOSTATIN POWDER TOP SCH ×2 (11:02→21:24)
[2018-12-17] MEDS: PATIENT'S OWN MED TOP SCH (11:02)
[2018-12-17] MEDS: ASPIRIN PO SCH (11:02)
[2018-12-17] MEDS: ZOFRAN IV PRN (11:16)
--- NOTE | 2018-12-17 15:23 | PROGRESS NOTE ---
DATE: 12/17/2018 INTERVAL HISTORY: The patient essentially stable. Still getting frequent dressing changes and wound care. Still struggles to move any significant distance without assistance or frequent rest, but no acute events overnight. No new complaints. REVIEW OF SYSTEMS: Twelve point review of systems negative, except as per interval history. LABS: Glucose 143 to 262. VITALS: T-max 98.5 degrees, pulse 68, respirations 20, blood pressure 139/53, O2 saturation 95% on room air. PHYSICAL EXAMINATION: General: No acute distress. Vitals: As above. HEENT: Normocephalic, atraumatic. Moist mucous membranes. Neck: No cervical adenopathy. Cardiovascular: Regular rate and rhythm. No murmurs noted. Pulmonary: Clear to auscultation within the limits of body habitus. Abdomen: Soft, nontender, nondistended. Bowel sounds positive. Obese. Extremities: Peripheral pulses remain decreased, but present. Severe chronic lymphedema stable to minimally improved. Still some erythema, but it seems to be improving slowly, but consistently with treatment. Fairly deep, but small ulcer in right anterior lower leg remains packed and bandaged, approximately stable. Neurologic: Cranial nerves grossly intact. Mild to moderate global weakness remains, but no focal deficits. Psychiatric: Normal mood and affect. Awake, alert, oriented x3. Skin: Chronic lymphedema and ulceration as above. No new rashes or lesions seen. ASSESSMENT AND PLAN: 1. Bilateral lower extremity cellulitis superimposed on chronic lymphedema. Also small wound to the right lower extremity. Still requiring frequent dressing changes and wound care, and is likely to do this for the foreseeable future. On antibiotics with daptomycin initially, but long-term acute care refused because of this. Transition to Zosyn based on sensitivities to attempt to get the patient placed into long-term acute care. Initial long-term acute care again refused the patient. Discussed with Case Management; they are sending additional referrals to try to get patient placed as he is going to be extremely high risk for coming back with new or worsened lower extremity infection without close monitoring, frequent dressing changes and good wound care. 2. Diabetes mellitus, somewhat improved control over the last day with increased sliding scale. Still not quite ideal, so will go up on the evening Lantus from 40 to 50. 3. Benign prostatic hypertrophy. Continue Flomax. 4. Chronic constipation, stable on MiraLAX. 5. Hypertension, reasonable control on current regimen. Monitor. 6. Elevated BNP. Repeat echocardiogram obtained. This patient with signs of volume overload, primarily lower extremity edema, elevated BNP. Last echocardiogram was not a great study. Repeat echocardiogram here shows normal ejection fraction. No major valvular pathology, no obvious diastolic failure. Swelling issues and BNP related to chronic lymphedema rather than congestive heart failure. 7. Disposition: The patient requiring frequent dressing changes and fairly extensive wound care in addition to intravenous antibiotics. Initial long-term acute care refused. Patient has discussed with case management. They are sending out additional referrals to see if we can get him into long-term acute care. If all placement options fail, may have to send patient home with home health, but if we do that he is going to be high risk for coming back with new or worsened lower extremity infection.
--- NOTE | 2018-12-17 19:22 | INFECTIOUS DISEASE PROGRESS NO ---
DATE: 12/17/2018 PRESENT ILLNESS: Mr. Reese has bilateral lower extremity cellulitis, growing enterococcus and streptococcus. MEDICATIONS: He is receiving Zosyn 4.5 g IV every 8 hours. PHYSICAL EXAMINATION: Vital Signs: Temperature is 98 degrees, pulse rate 68, respiratory rate 20, blood pressure 139/53, and O2 saturation is 95% on room air. General: This is a morbidly obese, chronically ill appearing, middle-aged gentleman. He is lying in bed, currently in no acute distress. HEENT: Atraumatic, normocephalic. Oral mucous membranes are pink and moist. Conjunctivae are pink. Neck: Supple. Trachea is midline. Cardiovascular: Heart rate and rhythm are regular. Normal sinus rhythm on the monitor. Respiratory: Lung sounds are bilaterally diminished. No work of breathing is noted. Abdomen: Soft, obese, and nontender. Bowel sounds are active. Extremities: There is erythema, edema, and dry skin noted to his bilateral lower extremities with a dressing in place to the right calf. Neurologic: He is awake, alert, oriented, and able to ambulate with physical therapy. There is no tremor. LABORATORY AND X-RAY: None available today. ASSESSMENT AND PLAN: Mr. Reese is being treated for bilateral lower extremity cellulitis, and has been switched over to Zosyn for the enterococcus and streptococcus that have been found in his legs. The plan will be for him to be discharged to long-term acute care once he has been approved. These plans have been discussed with and recommended by Dr. Prather. COMORBIDITIES: for Mr. Reese include morbid obesity, peripheral vascular disease, diabetes mellitus, and gastroesophageal reflux disease. Dictated by WALTER Berger for Keny Prather MD cc: Keny Prather MD [facility]
[2018-12-18] MEDS: ZOSYN 4.5 GM in NS 100 ML IV SCH ×3 (00:56→16:53)
[2018-12-18] MEDS: PERCOCET-10 PO PRN ×3 (05:28→21:52)
[2018-12-18] MEDS: HUMALOG SUBQ SCH ×3 (06:50→16:53)
[2018-12-18] MEDS: HUMULIN R SUBQ SCH ×4 (06:51→21:53)
--- NOTE | 2018-12-18 08:21 | GENERAL SURGERY PROGRESS NOTE ---
DATE: 12/18/2018 SUBJECTIVE: Patient seems to be doing okay. OBJECTIVE: Vital Signs: Patient is currently afebrile. His vital signs are stable. General: No acute distress. HEENT: Normocephalic, atraumatic. Pupils equal, round, reactive to light. Mucous membranes moist. Oropharynx benign. Neck: Supple. Trachea midline. Cardiovascular: Regular rate and rhythm. Lungs: Grossly clear. Abdomen: Obese but nontender. Extremities: Wound to right leg stabilizing, still with chronic changes. ASSESSMENT AND PLAN: A 63-year-old gentleman with bilateral leg wounds. Bilateral leg wounds. At this time, we will change dressing changes to once a day. This may help with the placement issue. Wound is improving slowly. He will probably need some lymphedema therapy here in the near future but otherwise continue current treatment. cc: Shaji Cobos MD
[2018-12-18] MEDS: LOVENOX SUBQ SCH (09:56)
[2018-12-18] MEDS: HYDROCHLOROTHIAZIDE PO SCH (09:56)
[2018-12-18] MEDS: ZEBETA PO SCH (09:56)
[2018-12-18] MEDS: LASIX PO SCH (09:56)
[2018-12-18] MEDS: THERA M PLUS PO SCH (09:56)
[2018-12-18] MEDS: ASPIRIN PO SCH (09:56)
[2018-12-18] MEDS: PATIENT'S OWN MED TOP SCH (09:56)
[2018-12-18] MEDS: FLOMAX PO SCH ×2 (09:56→21:52)
[2018-12-18] MEDS: DULCOLAX PR SCH (09:57)
[2018-12-18] MEDS: LANTUS INSULIN SUBQ SCH ×2 (09:57→21:53)
[2018-12-18] MEDS: MYCOSTATIN POWDER TOP SCH ×2 (09:58→21:53)
[2018-12-18] MEDS: MIRALAX PO SCH (09:58)
--- NOTE | 2018-12-18 15:41 | PROGRESS NOTE ---
DATE: 12/18/2018 INTERVAL HISTORY: Patient essentially stable. Ability to ambulate minimally better with PT. No acute events overnight. No new complaints. REVIEW OF SYSTEMS: Twelve point review of systems negative except as per interval history. VITAL SIGNS: T-max 98.5 degrees, pulse 70, respirations 18, blood pressure 102/50, O2 saturation 98% on room air. PHYSICAL EXAMINATION: General: No acute distress. Vital signs: As above. HEENT: Normocephalic, atraumatic. Moist mucous membranes. No cervical adenopathy. Cardiovascular: Regular rate and rhythm. No murmurs noted. Pulmonary: Clear to auscultation bilaterally within the limits of his body habitus. Abdomen: Soft, nontender, nondistended. Morbidly obese. Bowel sounds positive. Extremities: Peripheral pulses unchanged, decreased but present. Severe chronic lymphedema similar to previous. Right lower extremity ulcer also stable. Remains packed and bandaged. Neurologic: Cranial nerves grossly intact. Mild global weakness but no focal deficits. Psychiatric: Normal mood and affect. Awake, alert, oriented x3. Skin: Leg changes as above. No new lesions. ASSESSMENT AND PLAN: 1. Bilateral lower extremity cellulitis on top of chronic lymphedema, as well as small wound to the right lower extremity. Surgery altering dressing changes to once a day. On antibiotics with Zosyn. Improving although quite slowly. 2. Diabetes mellitus. Control not perfect but improved glucoses from 150 to 229. Continue monitoring. Depending on what it does today, may increase Lantus slightly tomorrow. 3. Benign prostatic hypertrophy. Continue Flomax. 4. Chronic constipation. Stable on MiraLAX. 5. Hypertension. Control reasonable. Monitor. 6. Disposition. Turned down for initial LTAC. Referral sent to other facilities. Awaiting reply and insurance approval.
[2018-12-19] MEDS: ZOSYN 4.5 GM in NS 100 ML IV SCH ×2 (00:03→08:40)
[2018-12-19] MEDS: PERCOCET-10 PO PRN ×2 (05:05→12:11)
--- NOTE | 2018-12-19 06:01 | DISCHARGE SUMMARY ---
ADMISSION DATE: 12/06/2018 DISCHARGE DATE: 12/19/2018 ADMISSION DIAGNOSIS: 1. Right jiang wound with infection. 2. Yeast in groin. 3. Diabetes mellitus type 2. 4. Peripheral vascular disease with lymphedema. 5. Hypertension. 6. Chronic pain. 7. History of methicillin-resistant Staphylococcus aureus in wound. 8. Arthritis. 9. Hyperlipidemia. 10. Gastroesophageal reflux disease. 11. Morbid obesity. DISCHARGE DIAGNOSIS: 1. Bilateral lower extremity cellulitis with right jiang wound. 2. Diabetes mellitus type 2. 3. Benign prostatic hypertrophy with urinary retention. 4. Chronic constipation. 5. Hypertension. 6. Elevated proBNP. CONSULTATIONS: 1. Case Management. 2. Environmental Attorney. 3. Wound Care. 4. Dr. Cobos for right jiang wound. 5. Dr. Rueda for urinary retention number. 6. Dr. Prather for right jiang infection and bilateral cellulitis number. 7. [facility] for LTAC. SURGERIES AND PROCEDURES: None. HOSPITAL COURSE: Mr. Cole Reese is a 63-year-old morbidly obese male with a medical history of peripheral vascular disease, chronic lower extremity lymphadenopathy and recent treatment for MRSA in March 2018 in his legs. Presented to [facility]. He came in with complaints of increased weakness and now with a right jiang new wound that had purulent drainage, almost black-colored drainage. Apparently had been going on for at least 4 weeks or a full month prior to presentation. He denied fever. He did have some complaints of yeast in the groin and there was a stage I on his buttocks where he sits for long periods of time. Also, the lower extremities were very scaly. He even admitted that his dog licking his wounds or places of oozing. He also felt like he was sleeping more. He was initiated on antibiotic therapy. He is ruled out for osteomyelitis. General Surgery felt like his morbid obesity would keep him from being able to get on the surgical table so he was referred to be treated with wound care and IV antibiotics. Dr. Prather also saw the patient and treated him with multiple different types of antibiotics. Initially, he was started on vancomycin and Zosyn, then it was changed to cefepime, then daptomycin, and then ceftaroline and before discharge was switched backed to Zosyn. The wounds that were cultured grew out specific on both legs, the left and the right leg. Apparently, there was another wound on both legs so 1 of them on the left grew out Enterococcus faecalis with mata sensitivity and the right leg grew out Enterococcus faecalis along with Strep mitis and Strep oralis which was resistant to erythromycin but otherwise sensitive to the others. Urine had no growth. Blood cultures had no growth. He had issues where he was receiving Lasix for fluid volume overload while he was here and having urinary retention issues and was seen by Dr. Rueda for that. I believe some in and out catheterizations were performed before a Villanueva catheter had been placed. Wound Care was consulted. They ordered a [facility]ariAir bed for him. He was started on a Vashe wet-to-dry dressing change regimen that was okayed by General Surgery. The right leg wound was medial calf around 4-1/2 weeks old but continued to be treated with wet-to-dry Vashe moist gauze and dry dressing changes. He would be premedicated with Dilaudid with his dressing changes or Percocet and the gauze would be protected with Kerlix. While he was here, his diabetes was well controlled. Lantus I believe was increased some. He was started on Flomax for BPH which was causing his urinary retention. For the chronic constipation, he was on MiraLAX. Otherwise, he was sitting here waiting for acceptance into a long-term care facility or a rehab facility. DISCHARGE VITAL SIGNS: Temperature 98.0 degrees, heart rate 70, respiratory rate 18, blood pressure 102/50, O2 saturation 98% on room air. LABORATORY DATA: White blood cells 6000, hemoglobin 12, hematocrit 38, platelet count 217,000. Sodium 136, potassium 4.0, BUN 19, creatinine 0.8, glucose 202. Cultures: Right leg Enterococcus faecalis, Strep mitis and Strep oralis with resistance to erythromycin and then the left leg was Enterococcus faecalis. Blood cultures were negative. Urine culture was negative. IMAGIN. On 12/06/2018 lower extremity x-ray, no evidence of osteomyelitis. This was of the right lower leg. 2. 12/06/2018 extremity venous ultrasound, no DVT or superficial venous thromboembolism of either lower extremity. 3. On 12/08/2018 had a nuclear bone scan performed which was a negative exam. 4. EKG 12/06/2018. It was normal sinus rhythm, rate 89, QTc 467. 5. Echocardiogram on 12/16/2018, normal ejection fraction of 60 to 65 percent. DISCHARGE DIET: Diabetic diet. DISCHARGE ACTIVITY: As tolerated with physical therapy. PHYSICIAN FOLLOWUP: Dr. Aguilar, his primary care provider, in [address] Stef Hollins I believe with Dr. Rudea should be on here. General surgery, I believe Dr. Cobos. DISCHARGE INSTRUCTIONS: Will be per the [facility] but if there are any signs or symptoms of worsening lower extremity infection will need to seek medical attention. DISCHARGE DISPOSITION: [facility] bed. Dictated by WALTER Ortiz for Darshan Paez MD cc: WALTER Ortiz agree with the above. the following is my own face to face assessment. patient still with severe chronic venous stasis dermatitis but cellulitis improving slowly with continued antibiotics and wound care. getting daily dressing changes and local wound care. going to LTAC to facilitate those. MTDD
[2018-12-19] MEDS: HUMALOG SUBQ SCH ×2 (07:01→11:11)
[2018-12-19] MEDS: HUMULIN R SUBQ SCH ×2 (07:01→11:11)
[2018-12-19 07:16] VITALS: BP 145/70
[2018-12-19] MEDS: FLOMAX PO SCH (08:39)
[2018-12-19] MEDS: ASPIRIN PO SCH (08:39)
[2018-12-19] MEDS: HYDROCHLOROTHIAZIDE PO SCH (08:39)
[2018-12-19] MEDS: LOVENOX SUBQ SCH (08:39)
[2018-12-19] MEDS: LASIX PO SCH (08:39)
[2018-12-19] MEDS: ZEBETA PO SCH (08:39)
[2018-12-19] MEDS: THERA M PLUS PO SCH (08:40)
[2018-12-19] MEDS: PATIENT'S OWN MED TOP SCH (08:40)
[2018-12-19] MEDS: MYCOSTATIN POWDER TOP SCH (08:40)
[2018-12-19] MEDS: LANTUS INSULIN SUBQ SCH (08:40)
[2018-12-19] MEDS ORDERED: FLU VACCINE IM ONE (11:47)
== END 2018-12-19 12:41 | disposition swing bed (61) | DRG 638 ==
LOC: P.ED 11:31 → 3N 15:09 → SUATTDRO 15:09
PROVIDERS: ATTEND Internal Medicine

== ENCOUNTER 2019-04-10 14:29 | Inpatient (IN) ==
[2019-04-10 17:41] LABS: BASO# 0.04 X1000 (0.0-0.2); BASO% 0.6 % (0.0-0.8); EOS# 0.21 X1000 (0.0-0.7); HEMATOCRIT 39.2 % (42.0-52.0); HEMOGLOBIN 12.6 g/dL (14.0-18.0); IMM GRAN# 0.02 X1000 (0.0-0.04); IMM GRAN% 0.3 % (0.0-0.5); LYMPH# 1.95 X1000 (1.2-3.4); LYMPH% 27.7 % (20.5-51.1); MCH 28.6 PG (27-31); MCHC 32.1 g/dL (33-37); MCV 88.9 FL (81-99); MONO# 0.52 X1000 (0.11-0.59); MONO% 7.4 % (1.7-9.3); MPV 10.4 FL (7.4-10.4); PLT 253 X1000 (130-400); RBC 4.41 XMIL (4.7-6.1); RDW 14.1 % (11.5-14.5); WBC 7.04 X1000 (4.8-10.8)
[2019-04-10 17:50] LABS: AGAP 15; ALB/GLOB RATIO 1.1; ALBUMIN 4.2 g/dL (3.5-5.0); ALKALINE PHOSPHATASE 89 U/L (32-122); BUN 17 mg/dL (8-22); CHLORIDE 98 mmol/L (98-107); COSMO 279; ESTIMATED GFR > 60; GLUCOSE 191 mg/dL (70-104); GOT 20 U/L (10-34); GPT 31 U/L (10-44); POTASSIUM 4.2 mmol/L (3.5-5.1); SODIUM 136 mmol/L (136-145); TCO2 23 mmol/L (25-35); TOTAL BILIRUBIN 0.23 mg/dL (0.20-1.00); TOTAL PROTEIN 8.1 g/dL (6.3-8.3)
--- NOTE | 2019-04-10 19:45 | Diag Imaging Result Doc PS360 ---
EXAM: CT EXT LOWER RIGHT W/O CON INDICATION: Ulceration TECHNIQUE: COMPARISON: None. FINDINGS: There is extensive soft tissue edema around the lower leg indicating cellulitis. It extends from the knee to the ankle. There is soft tissue ulceration anterior to the upper mid tibial shaft. There are a few subcutaneous droplets of gas. This is assumed to be an inflammatory phlegmon. A small abscess would be difficult to exclude with no IV contrast. Directly underlying the ulceration, the edge of the tibia has an irregular somewhat feathered appearance suggesting periostitis. Osteomyelitis is not excluded by CT. Correlation with MRI or bone scan would be more helpful. There are multiple coarse soft tissue calcifications at the anterior aspect of the lower leg. There is tricompartmental degenerative arthropathy at the knee. IMPRESSION: Extensive soft tissue edema around the lower leg with ulceration anterior to the mid to upper shaft of the tibia and suggestion of periosteal new bone formation involving the tibia underlying the ulceration which would indicate periostitis. Osteomyelitis cannot be excluded on this study. Correlation with MRI or bone scan is suggested. Electronically signed by Stef Avendaño 04/10/2019 7:43 PM
[2019-04-10] MEDS ORDERED: VANCOMYCIN IV PER PHARMACY MISC SCH (20:45)
[2019-04-10] MEDS: HUMALOG SUBQ SCH (21:00)
[2019-04-10 21:12] LABS: HEMOGLOBIN A1C 8.8 % (4.8-6.0)
--- NOTE | 2019-04-10 22:19 | PROVIDER DOCUMENTATION ---
This chart was entered by Gwen Boateng Scribe, acting as scribe for Keven Middleton MD. HPI-Rash/Wound/ReCheck - General Chief Complaint: Sores/Lesions Stated Complaint: Right Leg infection Time Seen by Provider: 04/10/19 15:30 Source: patient, family () Allergies/Adverse Reactions: Allergies Allergy/AdvReac Type Severity Reaction Status Date / Time celecoxib [From Celebrex] Allergy ANAPHYLAXIS Verified 03/27/19 21:27 Home Medications: Home Medication List Medication Instructions Recorded Confirmed Last Taken Type Aspirin 325 mg PO DAILY 12/06/18 12/06/18 12/05/18 History Bisoprolol [Zebeta] 5 mg PO DAILY 12/06/18 12/06/18 12/05/18 History Diclofenac Sodium [Pennsaid] 2 gm TOPICAL DAILY 12/06/18 12/06/18 12/05/18 History Exenatide E.r. [Bydureon] 2 mg PO DIRECTED 12/06/18 12/06/18 12/05/18 History Furosemide [Lasix] 40 mg PO DAILY 12/06/18 12/06/18 12/05/18 History Insulin Glargine,Hum.rec.anlog 80 unit SQ DAILY 12/06/18 12/06/18 12/05/18 History [Lantus Solostar] Lisinopril/Hydrochlorothiazide 1 tab PO DAILY 12/06/18 12/06/18 12/05/18 History [Lisinopril-Hctz 20-25 mg Tab] Metformin HCl [Metformin HCl ER] 1,000 mg PO BID 12/06/18 12/06/18 12/05/18 History Multivitamin with Minerals 1 ea PO DAILY 12/06/18 12/06/18 12/05/18 History [Multiple Vitamin] Acetaminophen [Tylenol] 650 mg PO Q4H PRN PRN tab 12/18/18 Unknown Rx Amitriptyline [Elavil] 25 mg PO PRN PRN #30 tab 12/18/18 Unknown Rx Insulin Glargine [Lantus Insulin] 45 unit SUBQ QHS unit 12/18/18 Unknown Rx Insulin Lispro [Humalog] 7 unit SQ TID AC #1 cartridge 12/18/18 Unknown Rx Oxycodone HCl/Acetaminophen 1 ea PO 4XDAY #30 tab 12/18/18 Unknown Rx [Percocet 10-325 mg Tablet] Vzlwdvxswauw-Cjcq-Ygagbpue,Iso 4.5 gm IV Q8HR #1 froarmaangy 12/18/18 Unknown Rx [Zosyn 4.5 gm/100 ml Galaxy Bag] Polyethylene Glycol 3350 [Miralax] 17 gm PO BID powder, packet 12/18/18 Unknown Rx Tamsulosin [Flomax] 0.4 mg PO BID cap 12/18/18 Unknown Rx Clindamycin [Cleocin] 300 mg PO Q6HR #30 cap 03/27/19 Unknown Rx - History of Present Illness-Dermatology Nature of Presenting Problem: 64 yo M, hx of lymphedema and DM with poor wound healing, presents to the ED per home health request, due to diabetic wound on RLE that has green discharge and a foul odor. Pt has BLE wrapped in bandages. Pt has a hx of MRSA infections. He has been on antibiotics over the past several days, reporting recent completion of a 7 day course of clindamyacin. Location: reports: lower extremity Quality: reports: painful Severity: reports: moderate Onset/Duration: reports: gradual Timing: reports: still present, constant, getting worse Context/Associated Symptoms: reports: other (wound) Identifiable cause?: Yes (diabetic ulcerations) Locality of Occurance: Home Similar Symptoms Previously?: Yes Recently seen or treated by another doctor?: No (has seen home health) Review of Systems - Adult - REVIEW OF SYSTEMS - ADULT Constitutional: denies: chills, fever Eyes: reports: no symptoms reported Ears, Nose, Mouth & Throat: reports: no symptoms reported Cardiovascular: denies: chest pain, palpitations, syncope Respiratory: reports: no symptoms reported Gastrointestinal: denies: abdominal pain, diarrhea, nausea, vomiting Genitourinary: reports: no symptoms reported Musculoskeletal: reports: no symptoms reported Integumentary: reports: see HPI, skin sores/ulcer Neurological: denies: dizziness/vertigo, headache/migraines Psychiatric: reports: no symptoms reported Endocrine: reports: no symptoms reported Hematologic/Lymphatic: reports: no symptoms reported Allergic/Immunologic: reports: no symptoms reported All Other Systems: Reviewed and Negative Past History - Adult - PAST MEDICAL HISTORY-ADULT Review of Records: reports: Old Records Reviewed, Nursing Assessment Review, Medications Reviewed, Social history reviewed & non-contributory. Major Childhood Illnesses: reports: denies history Cardiovascular: reports: HTN, hyperlipidemia Respiratory: reports: denies history Gastrointestinal: reports: GERD Genitourinary: reports: denies history Musculoskeletal: reports: denies history Neurological: reports: denies history Psychiatric: reports: denies history Endocrine/Immune: reports: Diabetes Diabetes Type: Type 2 Other Conditions: reports: denies history - PRIOR SURGERIES/PROCEDURES Surgical/Procedure History: reports: tonsillectomy, hernia repair - IMMUNIZATION STATUS Childhood Immunizations: See Nurse Assessment Flu Vaccine: See Nurse Assessment - FAMILY HISTORY Family History: reviewed, not pertinent - SOCIAL HISTORY Smoking: quit greater than 1 year Substance Use: denies Living Situation: family Physical Exam-General - PHYSICAL EXAM-ADULT Initial Vital Signs Reviewed: Yes - CONSTITUTIONAL General Appearance: appears well, alert, no apparent distress, obese - EYES Eyes: PERRL/EOMI, pink conjunctivae - HEAD, EARS, NOSE, MOUTH & THROAT HENMT: moist mucous membranes - NECK Neck: non-tender, full range of motion, supple, normal inspection - RESPIRATORY Respiratory: chest non-tender, lungs clear, normal breath sounds - CARDIOVASCULAR Cardiovascular: normal peripheral pulses, regular rate, rhythm - CHEST (BREASTS) Chest/Breast: deferred - GASTROINTESTINAL (ABDOMEN) Abdominal Exam: non tender, soft - GENITOURINARY Male Genitalia: deferred Rectal Exam: deferred Hemoccult Exam: deferred - LYMPHATIC Lymphatic: no adenopathy - MUSCULOSKELETAL Back Exam: no CVA tenderness, no vertebral tenderness Extremity: erythema (BLE), swelling (BLE), tenderness (BLE), other (two openings on the anterior aspect of the leg; one is about 2 cm, the other about 3-4 cm with green-yellow discharge and foul odor to RLE) - SKIN Integumentary: erythema (BLE), swelling (BLE), tenderness (BLE), other (diabetic ulceration with possible infection on RLE) - NEUROLOGIC Neurologic: grossly normal - PSYCHIATRIC Psych/Mental Status: normal mood/affect, normal thought content, normal thought process, oriented x 3 Progress - PLAN OF CARE/RESULTS Progress/Plan/Lab Results: Vital Signs - 8 hr 04/10/19 14:56 04/10/19 17:40 04/10/19 18:44 Temperature 98.3 F 98.9 F 98.1 F Pulse Rate 91 H 88 87 Respiratory Rate 18 20 18 Blood Pressure 157/72 177/83 154/66 O2 Sat by Pulse Oximetry 98 99 97 Laboratory Results - last 24 hr 04/10/19 04/10/19 16:52 16:52 WBC 7.04 RBC 4.41 L Hgb 12.6 L Hct 39.2 L MCV 88.9 MCH 28.6 MCHC 32.1 L RDW Std Deviation 14.1 Plt Count 253 MPV 10.4 Immature Gran % (Auto) 0.3 Neut % (Auto) 61.0 Lymph % (Auto) 27.7 [place] % (Auto) 7.4 Eos % (Auto) 3.0 Baso % (Auto) 0.6 Immature Gran # (Auto) 0.02 Neut # (Auto) 4.30 Lymph # (Auto) 1.95 [place] # (Auto) 0.52 Eos # (Auto) 0.21 Baso # (Auto) 0.04 Sodium 136 Potassium 4.2 Chloride 98 Carbon Dioxide 23 L Anion Gap 15 BUN 17 Creatinine 1.0 Estimated GFR/1.73 m2 > 60 BUN/Creatinine Ratio 17 Glucose 191 H Calculated Osmolality 279 Calcium 9.0 Total Bilirubin 0.23 AST 20 ALT 31 Alkaline Phosphatase 89 Total Protein 8.1 Albumin 4.2 Globulin 3.9 Albumin/Globulin Ratio 1.1 Orders Category Date Time Status FSBS/Accucheck Result AC + HS Care 04/10/19 20:44 Active Update & Confirm Home Medicati ROUTINE Care 04/10/19 20:[address] EXT LOWER RIGHT W/O CON [CT] Stat Exams 04/10/19 15:52 Completed A1C HGB W EST AVG GLUCOSE [CHEM] Routine Lab 04/10/19 16:52 Received BLOOD CULTURE [BLDCUL] Stat Lab 04/10/19 16:53 Results CBC WITH DIFF [HEME] Stat Lab 04/10/19 16:52 Completed COMPREHENSIVE METABOLIC PANEL [CHEM] Stat Lab 04/10/19 16:52 Completed WOUND CULTURE INC GRAM STAIN [RM] Stat Lab 04/10/19 20:41 Uncollected Insulin Lispro [Humalog] Med 04/10/19 21:00 Ordered See Protocol SUBQ 0700,1100,1600,2100 Pharmacy Order [Vancomycin IV Per Pharmacy] Med 04/10/19 20:45 Ordered 1 each MISC DIRECTED Piperacillin/Tazobactam [Zosyn] 3.375 gm Med 04/10/19 20:45 Ordered 0.9% Sodium Chloride Inj [Ns] 50 ml IV Q6H Transfer/Admit Order [TRANSFER] Routine Transfer 04/10/19 20:44 Ordered Result Diagrams: 04/10/19 16:52 04/10/19 16:52 - CT/MRI 1 CT Study: Lower Ext Impression: See EMR Report ("EXAM: CT EXT LOWER RIGHT W/O CON INDICATION: Ulceration TECHNIQUE: COMPARISON: None. FINDINGS: There is extensive soft tissue edema around the lower leg indicating cellulitis. It extends from the knee to the ankle. There is soft tissue ulceration anterior to the upper mid tibial shaft. There are a few subcutaneous droplets of gas. This is assumed to be an inflammatory phlegmon. A small abscess would be difficult to exclude with no IV contrast. Directly underlying the ulceration, the edge of the tibia has an irregular somewhat feathered appearance suggesting periostitis. Osteomyelitis is not excluded by CT. Correlation with MRI or bone scan would be more helpful. There are multiple coarse soft tissue calcifications at the anterior aspect of the lower leg. There is tricompartmental degenerative arthropathy at the knee. IMPRESSION: Extensive soft tissue edema around the lower leg with ulceration anterior to the mid to upper shaft of the tibia and suggestion of periosteal new bone formation involving the tibia underlying the ulceration which would indicate periostitis. Osteomyelitis cannot be excluded on this study. Correlation with MRI or bone scan is suggested. Electronically signed by Stef Avendaño 04/10/2019 7:43 PM") - CONSULTS/PCP/HOSPITALIST Notification #1 *Consult/PCP/Hospitalist*: Dr. Brown Time Discussed: 20:45 Consult Disposition: Admit (discussed case with Dr. Brown; pt is afebrile and has no WBC; however, CT scan is inconclusive; Dr. Brown agreed to assess the pt in the ED; and the subsequent decision is to admit.) Departure - Departure Date of Disposition Decision: 04/10/19 Time of Disposition Decision: 21:12 DIAGNOSIS: Leg ulcer Qualifiers: Laterality: right Non-pressure ulcer stage: with fat layer exposed Qualified Code(s): L97.912 - Non-pressure chronic ulcer of unspecified part of right lower leg with fat layer exposed Disposition: ADMITTED INPATIENT 09 Certified Medical Emergency: Emergent Condition: Stable Referrals and Follow-Ups: [facility] [Outside] Mando Aguilar MD [Primary Care Provider] - - Critical Care Note This patient required my direct & personal management of CC.: No Attestation - Physician/ MAGALYS Attestation Patient care was provided by Advanced Practice Provider:: No The physician spent face to face time with patient:: Yes Advanced Practice Provider documentation review:: Supervising physician onsite and consulted in the evaluation and care of this patient. The physician did have a face to face encounter with the patient. This chart was documented by the indicated scribe, (Gwen Boateng Scribe) and accurately reflects the services I performed and decisions made by me, Keven Middleton MD, as attested by the provider's signature.
[2019-04-11] MEDS: ZOSYN 3.375 GM in NS 50 ML IV SCH ×5 (00:20→23:59)
[2019-04-11] MEDS: VANCOMYCIN 2,000 MG in NS 500 ML IV SCH ×2 (00:30→19:04)
[2019-04-11] MEDS ORDERED: TYLENOL PO PRN (02:52)
[2019-04-11] MEDS ORDERED: NORCO-7.5 PO PRN (02:52)
[2019-04-11] MEDS: LOVENOX SUBQ SCH (03:35)
[2019-04-11] MEDS: NS 1,000 ML IV SCH ×2 (03:36→21:55)
[2019-04-11 08:23] LABS: BASO# 0.01 X1000 (0.0-0.2); BASO% 0.1 % (0.0-0.8); HEMATOCRIT 36.5 % (42.0-52.0); HEMOGLOBIN 11.8 g/dL (14.0-18.0); IMM GRAN% 1.2 % (0.0-0.5); LYMPH# 1.25 X1000 (1.2-3.4); LYMPH% 15.2 % (20.5-51.1); MCH 29.1 PG (27-31); MCHC 32.3 g/dL (33-37); MCV 89.9 FL (81-99); MONO# 0.48 X1000 (0.11-0.59); MONO% 5.9 % (1.7-9.3); MPV 10.9 FL (7.4-10.4); NEUT# 5.46 X1000 (1.4-6.5); NEUT% 66.6 % (42.2-75.2); PLT 202 X1000 (130-400); RBC 4.06 XMIL (4.7-6.1); RDW 14.1 % (11.5-14.5)
[2019-04-11] MEDS ORDERED: CYMBALTA PO SCH (09:15)
--- NOTE | 2019-04-11 09:27 | PROGRESS NOTE ---
DATE: 04/11/2019 SUBJECTIVE: Patient reports feeling fine. Denies any fever or chills. OBJECTIVE: Vital Signs: Temperature 98.1 degrees, heart rate 87, respiratory rate 18, blood pressure 154/66, and O2 saturation 97% on room air. General: This is a chronically ill-looking morbidly obese 64-year-old male lying in bed in no acute distress. Cardiovascular: S1, S2 heard. No murmurs, gallops, or rubs. Regular rate and rhythm. Respiratory: Clear bilaterally to auscultation. No work of breathing or using accessory muscles. Abdomen: Soft. Nontender to palpation. Bowel sounds present. No organomegaly. Extremities: There are 2 openings in the anterior aspect of the leg, one is approximately 2 cm, the other is about 3 to 4 cm with green yellow discharge and foul odor in the right lower extremities. Neurological: Patient alert and oriented x3. Moves all 4 extremities. LABORATORY DATA: White count 8.20, hemoglobin 11.8, hematocrit 36.5, and platelets 202,000 with normal BMP that is still pending. Hemoglobin A1c 8.8. ASSESSMENT AND PLAN: 1. Right lower extremity cellulitis. Patient is on vancomycin and Zosyn. He has history of MRSA. Urine culture and wound culture have been started. 2. Hypertension. We will restart home medications today. 3. Diabetes mellitus type 2. We will continue with sliding scale insulin. Accu-Chek before meals and also at bedtime, and Lantus home doses. 4. Morbid obesity. Aware. Patient encouraged to lose weight. 5. Disposition. We will continue to monitor this patient closely. We will consult Dr. Keny Prather tomorrow. cc: Heber Boo MD
[2019-04-11 09:34] LABS: AGAP 15; BUN 14 mg/dL (8-22); CALCIUM 8.9 mg/dL (8.8-10.2); CHLORIDE 96 mmol/L (98-107); COSMO 271; CREATININE 0.9 mg/dL (0.7-1.2); ESTIMATED GFR > 60; GLUCOSE 170 mg/dL (70-104); POTASSIUM 4.2 mmol/L (3.5-5.1); SODIUM 133 mmol/L (136-145); TCO2 22 mmol/L (25-35)
[2019-04-11] MEDS: PRINZIDE 10/12.5MG PO SCH (11:09)
[2019-04-11] MEDS: PERCOCET-10 PO PRN (11:09)
[2019-04-11] MEDS: ZEBETA PO SCH (11:44)
[2019-04-11] MEDS: LASIX PO SCH (11:44)
[2019-04-11] MEDS: HUMALOG SUBQ SCH ×4 (12:48→21:55)
[2019-04-11] MEDS: ZOFRAN IV PRN (17:27)
--- NOTE | 2019-04-11 20:15 | HISTORY AND PHYSICAL ---
CHIEF COMPLAINT: Right lower leg infection. HISTORY OF PRESENT ILLNESS: This is a morbidly obese 64-year-old male who has a history of bilateral lower extremity cellulitis. It has been positive for MRSA in the past. He was being treated outpatient for a right lower extremity cellulitis. He had one small blister around 2-3 cm. Apparently it was being followed by a Home Health care nurse. She came out to take the bandages off and it appeared as if a 2nd larger ulceration on the right jiang had formed with some possible tunneling between the 2. The larger ulceration was around 4 cm. Patient is also a poorly controlled diabetic. I believe his hemoglobin A1c is greater than 8. He has other medical history that includes peripheral vascular disease, chronic lymphedema, hypertension, chronic pain syndrome, arthritis, hyperlipidemia, GERD and frequent lower extremity wounds. He will be placed on IV antibiotics with a wound culture to be obtained and placed on the medical floor for further evaluation and treatment. SURGICAL HISTORY: Tonsillectomy, umbilical hernia repair at around 5 weeks old. SOCIAL HISTORY: No tobacco. Occasional alcohol. No illicit drugs. FAMILY HISTORY: Twin brother with asthma. Mother had colon cancer that went to her liver, also had a stroke in her 30s after a car accident. Father had heart disease and a permanent pacemaker. ALLERGIES: Celebrex causing anaphylaxis. HOME MEDICATIONS: Simvastatin 20 mg p.o. at bedtime, clindamycin 30 mg p.o. q.6, Trulicity 1.5 mg subcutaneous, glimepiride 4 mg p.o. b.i.d., lispro insulin 7 units subcutaneous t.i.d. a.c., metformin 1000 mg p.o. b.i.d., multivitamin 1 daily, amitriptyline 25 mg p.o. p.r.n., aspirin 325 mg p.o. daily, bisoprolol 5 mg p.o. at bedtime, duloxetine 30 mg p.o. daily, Lasix 40 mg p.o. at bedtime, Lantus 40 units subcutaneous at bedtime, lisinopril/hydrochlorothiazide 20/25 one p.o. daily, Percocet 10 p.o. 4 times a day, Flomax 0.4 mg p.o. b.i.d. REVIEW OF SYSTEMS: Fourteen-point review of systems conducted with the patient. Pertinent positives listed above in the HPI. All other systems reviewed and found to be negative. PHYSICAL EXAMINATION: VITAL SIGNS: Temperature 98.1, pulse 87, respirations 18, blood pressure 154/66, oxygen saturation 97% on room air. GENERAL: Morbidly obese male lying in the ER stretcher, alert and oriented times 3, answered all questions appropriately. HEENT: Head is atraumatic, normocephalic. Pupils equal, round, reactive to light. Extraocular eye movement is intact. Sclera is anicteric. Conjunctiva is pink. Oral mucosa is moist. NECK: Supple. No JVD. No thyromegaly. Trachea is midline. No cervical lymphadenopathy. CARDIAC: S1, S2 appreciated. No murmurs, gallops, rubs. LUNGS: Clear to auscultation bilaterally. No rhonchi, wheezes, rales. Symmetric rise and fall with respirations. ABDOMEN: Protuberant, soft, nondistended, nontender. Bowel sounds present all 4 quadrants, normoactive. No pulsatile mass. No organomegaly. EXTREMITIES: No clubbing, cyanosis. One-plus pitting edema bilateral lower extremities which appears to be chronic. Chronic thickening of the skin and chronic hyperpigmentation likely related to lymphedema and venostasis. Right lower extremity has 2 ulcerations, 1 around 3 cm, the other around 5 cm. There could be tunneling in between. It is draining a foul- smelling purulent drainage. NEUROLOGICAL: He is alert and oriented times 3. No focal motor deficits. Otherwise nonfocal examination. GENITOURINARY: No bladder distention. Patient voids. Otherwise deferred. LABORATORY DATA: WBC 7.04. Hemoglobin 12.6. Hematocrit 36.2. Platelet count 253. Sodium 136. Potassium 4.2. Chloride 98. Carbon dioxide 23. BUN 17. Creatinine 1. Glucose 191. Hemoglobin A1c 8.8. CT of the right lower extremity shows extensive soft tissue edema with ulcerations anterior to the mid upper shaft of the tibia, could not exclude osteomyelitis. ASSESSMENT: 1. Right lower extremity cellulitis. 2. Hypertension. 3. Hyperlipidemia. 4. Chronic pain syndrome. 5. Diabetes mellitus type 2, now insulin dependent, with hyperglycemia. PLAN: Place patient on sliding scale insulin. Get his home medications fully reconciled. We will restart his antihypertensives and his statin. Place patient on IV vancomycin and Zosyn. Blood cultures and wound cultures are pending. We will consult ID on Saturday. Further recommendation per patient clinical course. Dictated by WALTER Gomez for Julio Brown MD I have performed a face to face diagnostic evaluation. Labs/Xrays- reviewed. Exam- Chest - clear, CV- regular, Ext- erythema on RLE. A/P- RLE cellulitis- Admit, IV ABX. Dr. Brown cc: WALTER Gomez MD [facility]
[2019-04-11] MEDS: FLOMAX PO SCH (21:54)
[2019-04-11] MEDS: ZOCOR PO SCH (21:54)
[2019-04-11] MEDS: LANTUS INSULIN SUBQ SCH (21:59)
[2019-04-11] MEDS: ELAVIL PO PRN (22:08)
[2019-04-12] MEDS: VANCOMYCIN 2,000 MG in NS 500 ML IV SCH (01:09)
[2019-04-12] MEDS: LOVENOX SUBQ SCH (05:40)
[2019-04-12] MEDS: ZOSYN 3.375 GM in NS 50 ML IV SCH (05:40)
[2019-04-12] MEDS: NS 1,000 ML IV SCH ×2 (05:46→22:55)
[2019-04-12] MEDS: HUMALOG SUBQ SCH ×4 (07:12→22:34)
[2019-04-12] MEDS: PERCOCET-10 PO PRN (07:22)
[2019-04-12 07:45] LABS: BASO# 0.01 X1000 (0.0-0.2); BASO% 0.2 % (0.0-0.8); EOS% 8.1 % (0.0-10.0); HEMATOCRIT 35.4 % (42.0-52.0); HEMOGLOBIN 11.2 g/dL (14.0-18.0); LYMPH# 1.48 X1000 (1.2-3.4); LYMPH% 24.1 % (20.5-51.1); MCH 28.4 PG (27-31); MCHC 31.6 g/dL (33-37); MCV 89.8 FL (81-99); MONO% 6.5 % (1.7-9.3); MPV 10.1 FL (7.4-10.4); NEUT# 3.75 X1000 (1.4-6.5); NEUT% 61.1 % (42.2-75.2); PLT 210 X1000 (130-400); RBC 3.94 XMIL (4.7-6.1); RDW 14.1 % (11.5-14.5); WBC 6.14 X1000 (4.8-10.8)
[2019-04-12 08:00] LABS: AGAP 11; BUN 11 mg/dL (8-22); CALCIUM 8.7 mg/dL (8.8-10.2); CHLORIDE 104 mmol/L (98-107); COSMO 281; CREATININE 0.9 mg/dL (0.7-1.2); ESTIMATED GFR > 60; GLUCOSE 137 mg/dL (70-104); POTASSIUM 3.8 mmol/L (3.5-5.1); SODIUM 140 mmol/L (136-145); TCO2 25 mmol/L (25-35)
--- NOTE | 2019-04-12 08:41 | PROGRESS NOTE ---
DATE: 04/12/2019 SUBJECTIVE: Patient reports feeling fine. Denies any fever or chills. OBJECTIVE: Vital Signs: Temperature 98.6 degrees, heart rate 82, respiratory rate 20, blood pressure 151/60, O2 saturation 98% on room air. General Examination: This is a chronically ill- appearing and extremely morbidly obese, 64-year-old, male lying in bed, in no acute distress. Cardiovascular Examination: S1 and S2 heard. No murmurs, gallops, or rubs. Regular rate and rhythm. Respiratory Examination: Clear bilaterally to auscultation. No work of breathing or using accessory muscles. Abdomen: Soft. Nontender to palpation. Bowel sounds present. No organomegaly. Extremities: There are two openings in the anterior aspect of the right leg. One is approximately 2 cm and the other one is about 3 to 4 cm with yellow-greenish discharge and a foul odor. Neurological Examination: The patient is alert and oriented x3. Moves 4 extremities. Laboratory Data: White cell count 6.14, hemoglobin 9.2, hematocrit 35.4, platelets 210,000. BMP that reveals glucose 137 and calcium 8.7. ASSESSMENT: 1. Right lower extremity cellulitis. 2. Hypertension. 3. Hyperlipidemia. 4. Chronic pain syndrome. 5. Diabetes mellitus type 2. PLAN: At this point, the patient continues to be on vancomycin and Zosyn. There is a concern for possible osteomyelitis, considering the appearance of both wounds in the legs. We will do an MRI of the right lower extremity. In case we are not able to do that exam, we will do a bone scan. Dr. Prather, infectious disease, is following. He is going to be involved in his care. For hypertension and hyperlipidemia, we will continue home medications. For diabetes mellitus type 2, we will continue with sliding scale insulin and Accu-Chek before meals and also at bedtime. We will continue to monitor this patient closely. cc: Heber Boo MD
[2019-04-12] MEDS: LASIX PO SCH (09:57)
[2019-04-12] MEDS: CYMBALTA PO SCH (09:57)
[2019-04-12] MEDS: FLOMAX PO SCH ×2 (09:57→21:12)
[2019-04-12] MEDS: ZEBETA PO SCH (09:57)
[2019-04-12] MEDS: PRINZIDE 10/12.5MG PO SCH (09:57)
[2019-04-12] MEDS: ASPIRIN PO SCH (09:58)
[2019-04-12] MEDS: ROCEPHIN 2 GM in NS 50 ML IV SCH ×2 (12:35→22:55)
--- NOTE | 2019-04-12 14:19 | INFECTIOUS DISEASE CONSULT REP ---
DATE: 04/12/2019 CONCLUSION: Patient has a very severe right lower extremity ulceration. There is cellulitis and infected, ulcerated areas and also the patient may have tibial osteomyelitis. RECOMMENDATIONS: I have discontinued vancomycin and Zosyn and I placed the patient on Rocephin. Some of the side effects of Rocephin, namely rash and diarrhea, have been explained to the patient who agrees with treatment. Tomorrow the patient will have a MRI of the leg to confirm the diagnosis of osteomyelitis. DISCUSSION: The patient is morbidly obese and as a result of that, he has developed severe leg ulceration bilaterally. In January he was in for leg cellulitis and he got better, but recently his right leg began becoming more swollen, more erythematous, and draining purulent fluid from ulcerations on the leg. The patient's studies thus far show a CBC with a white count of 6,140, hemoglobin 11.2, and platelet count 210,000. Creatinine is 0.9. GFR is greater than 60. Liver function studies are normal. Blood cultures are negative. CT scan of the right leg shows edema and ulcerations and possible osteomyelitis of the tibia. MRI of the leg has been ordered and is pending. PAST MEDICAL HISTORY/REVIEW OF SYSTEMS: Eyes and ears: The patient wears glasses and he has decreased hearing. Neck: No stiffness. Respiratory: No cough or dyspnea, except he does have dyspnea with heavy working. Cardiac: No chest pain or palpitations. GI: No nausea or vomiting. The patient previously had difficulty passing his stools and now that is beginning to improve. : The patient feels like he is emptying his bladder better than he did when he was last in the hospital in November. Neurologic: The patient does not have seizures. He is not having any loss of motor or sensory function that he previously had. PAST SURGICAL HISTORY: Positive for tonsillectomy and umbilical hernia repair. MEDICAL DISEASES: Positive for peripheral vascular disease, bilateral leg edema, morbid obesity, diabetes mellitus, hypertension, arthritis, hyperlipidemia, gastroesophageal reflux disease, and frequent lower extremity wounds. FAMILY HISTORY: Positive for cancer, diabetes mellitus, hypertension, and stroke. SOCIAL HISTORY: The patient is . He rarely drinks alcoholic beverages. He does not smoke cigarettes or abuse drugs. He has dogs and a cat for pets. ALLERGIES: His chart lists an allergy to celecoxib. MEDICATIONS: Taken at home include Elavil, Zebeta, clindamycin, Trulicity, duloxetine, Lasix, Amaryl, insulin, lisinopril/hydrochlorothiazide, metformin, oxycodone, simvastatin, and Flomax. PHYSICAL EXAMINATION: Vital Signs: Temperature is 98.6 degrees, pulse 82, respirations 20, blood pressure is 151/68. Patient is 6 feet 4 inches tall and weighs 428 pounds. General: This is a morbidly obese, elderly male. He is in no acute distress. Head, eyes, ears, nose, throat: His hearing is decreased. He is wearing glasses. He can see near objects. Neck: No meningismus. Lungs: Clear to auscultation. Cardiovascular: Heart rate is regular. Abdomen: Soft and nontender. Extremities: The left leg has a large dressing around it. The right leg is very erythematous and swollen. It does have ulcerated areas where there is purulent drainage. There is also marked crusting of skin in the lower part of the right leg. Neurologic: The patient is alert. He can move his extremities. There is no tremor. His memory as regarding his medical history is intact. Thank you for the consult. cc: Keny Prather MD [facility]
[2019-04-12] MEDS: ZOCOR PO SCH (21:12)
[2019-04-12] MEDS: LANTUS INSULIN SUBQ SCH (22:54)
[2019-04-13] MEDS: ELAVIL PO PRN (01:17)
[2019-04-13] MEDS: LOVENOX SUBQ SCH (05:08)
[2019-04-13] MEDS: HUMALOG SUBQ SCH ×4 (06:22→22:30)
[2019-04-13 08:45] LABS: BASO# 0.01 X1000 (0.0-0.2); BASO% 0.1 % (0.0-0.8); EOS# 0.53 X1000 (0.0-0.7); EOS% 7.4 % (0.0-10.0); HEMATOCRIT 36.6 % (42.0-52.0); HEMOGLOBIN 11.3 g/dL (14.0-18.0); LYMPH# 2.39 X1000 (1.2-3.4); LYMPH% 33.2 % (20.5-51.1); MCHC 30.9 g/dL (33-37); MCV 90.8 FL (81-99); MONO# 0.63 X1000 (0.11-0.59); MONO% 8.8 % (1.7-9.3); MPV 10.2 FL (7.4-10.4); NEUT# 3.64 X1000 (1.4-6.5); NEUT% 50.5 % (42.2-75.2); PLT 212 X1000 (130-400); RBC 4.03 XMIL (4.7-6.1); RDW 14.1 % (11.5-14.5)
[2019-04-13 09:03] LABS: AGAP 13; BUN 11 mg/dL (8-22); CALCIUM 8.4 mg/dL (8.8-10.2); CHLORIDE 100 mmol/L (98-107); COSMO 276; ESTIMATED GFR > 60; GLUCOSE 123 mg/dL (70-104); POTASSIUM 3.5 mmol/L (3.5-5.1); SODIUM 138 mmol/L (136-145); TCO2 25 mmol/L (25-35)
--- NOTE | 2019-04-13 09:36 | PROGRESS NOTE ---
DATE: 04/13/2019 SUBJECTIVE: Patient reports feeling fine. Denies any fever or chills. OBJECTIVE: Vital Signs: Temperature 98.0 degrees, heart rate 73, respiratory rate 18, blood pressure 156/63, O2 saturation 98% on room air. General Examination: This is a chronically ill- appearing and extremely morbidly obese, 64-year-old, male, lying in bed, in no acute distress. Cardiovascular Examination: S1 and S2 heard. No murmurs, gallops, or rubs. Regular rate and rhythm. Respiratory Examination: Clear bilaterally to auscultation. No work of breathing or using accessory muscles. Abdomen: Soft, nontender to palpation. Bowel sounds present. No organomegaly. Extremities: There are two openings in the anterior aspect of the right leg. One is approximately 2 cm and the other one is approximately 3 cm, with yellowish- greenish discharge and foul odor. Neurological Examination: The patient is alert and oriented x3. Moves 4 extremities. Laboratory Data: Pending at the time of my dictation. ASSESSMENT: 1. Right lower extremity cellulitis. 2. Tibial osteomyelitis suspected. 3. Hypertension. 4. Hyperlipidemia. 5. Chronic pain syndrome. 6. Diabetes mellitus type 2. PLAN: At this point, the patient clinically is stable, not complaining of too much pain in the affected area. Dr. Prather from infectious disease has been consulted. He has changed antibiotics to Rocephin at this point. Because of suspicion for osteomyelitis in the right tibial area, MRI of the right lower extremity has been ordered. In case the patient is not able to get into the machine because of his body habitus, we will order a bone scan. For the rest of the medical conditions like diabetes, we will continue with Accu-Chek before meals and also at bedtime, and basal insulin as well. We will continue to monitor this patient closely. We are going to provide Dilaudid just after patient received wound care. cc: Heber Boo MD
[2019-04-13] MEDS: PRINZIDE 10/12.5MG PO SCH (10:37)
[2019-04-13] MEDS: ZEBETA PO SCH (10:37)
[2019-04-13] MEDS: LASIX PO SCH (10:37)
[2019-04-13] MEDS: ASPIRIN PO SCH (10:37)
[2019-04-13] MEDS: FLOMAX PO SCH ×2 (10:38→22:29)
[2019-04-13] MEDS: ROCEPHIN 2 GM in NS 50 ML IV SCH ×2 (10:41→22:24)
--- NOTE | 2019-04-13 10:58 | INFECTIOUS DISEASE PROGRESS NO ---
DATE: 04/13/2019 PRESENT ILLNESS: The patient has a very severe right leg cellulitis and on CAT scan, there is a possibility he has osteomyelitis. MEDICATIONS: The patient is receiving Rocephin. PHYSICAL EXAMINATION: Vital Signs: Temperature is 98 degrees, pulse 76, respirations 18, blood pressure is 156/63. General: This is a morbidly obese, elderly male. He is in no acute distress. Head, Eyes, Ears, Nose, and Throat: He can hear my spoken words and see near objects. He does not have any white patches on his tongue. Neck: No pain with movement. Lungs: Clear to auscultation. Cardiovascular: Regular heart rate. Abdomen: Soft and nontender. Extremities: The patient has a large dressing on the left leg. The right leg does not have a dressing on it. It is erythematous, swollen, and it has ulcerated areas where pus is coming out. Neurologic: The patient is awake. He can move his extremities. There is no tremor. LAB AND X-RAY: The patient's CBC shows a white count of 7200, hemoglobin 11.3, and platelet count 212,000. Creatinine is 1. GFR is greater than 60. I ordered an MRI for the patient's right leg to see if he had osteomyelitis as is suggested on the patient's CAT scan. However, the patient is too heavy for the CAT scan machine so instead, I have ordered a three-phase bone scan of the right leg. Also, I have put an order in for the wound nurse to determine what dressing we need for his right leg. COMORBIDITIES: The patient is morbidly obese. He has peripheral vascular disease, bilateral leg edema, diabetes mellitus, arthritis, gastroesophageal reflux disease, and a history of frequent lower extremity infections and wounds. cc: Keny Prather MD
[2019-04-13] MEDS: CYMBALTA PO SCH (12:21)
[2019-04-13] MEDS: DILAUDID IV PRN (12:50)
[2019-04-13] MEDS ORDERED: CALMOSEPTINE OINTMENT TOP PRN (13:33)
--- NOTE | 2019-04-13 14:52 | Diag Imaging Result Doc PS360 ---
EXAM: 3 PHASE BONE SCAN 04/13/2019 HISTORY: R leg osteomyelitis, see CT scan report TECHNIQUE: Three phase bone scan, 25.7 mCi of technetium 99m MDP COMMENT: Interval was performed over the lower legs. There is no significant abnormal flow activity. There is some increased blood pool activity over the mid right lower leg. This corresponds to the location of the ulcer. There is minimal increased static bone activity over the tibia anteriorly in this area corresponding with the area of thick periosteal reaction seen on the recent CT examination. There are no plain radiographs available for comparison subsequent to the examination of 12/06/2018. IMPRESSION: Nonspecific uptake in the mid anterior tibial shaft. The possibility of chronic osteomyelitis cannot be entirely excluded. Electronically signed by Rahul Cross 04/13/2019 2:50 PM
[2019-04-13] MEDS: MYCOSTATIN POWDER TOP SCH ×2 (16:08→22:24)
[2019-04-13] MEDS ORDERED: DULAGLUTIDE 1.5 MG SQ SCH (16:30)
[2019-04-13] MEDS ORDERED: NON-FORMULARY BULK MED SUBQ SCH (17:00)
[2019-04-13] MEDS: NS 1,000 ML IV SCH (22:28)
[2019-04-13] MEDS: ZOCOR PO SCH (22:29)
[2019-04-13] MEDS: LANTUS INSULIN SUBQ SCH (22:31)
[2019-04-14] MEDS: ZOFRAN IV PRN (04:55)
[2019-04-14] MEDS: LOVENOX SUBQ SCH (04:55)
[2019-04-14] MEDS: HUMALOG SUBQ SCH ×4 (06:51→22:12)
[2019-04-14 07:16] LABS: BASO# 0.02 X1000 (0.0-0.2); BASO% 0.3 % (0.0-0.8); EOS# 0.46 X1000 (0.0-0.7); EOS% 6.7 % (0.0-10.0); HEMATOCRIT 38.9 % (42.0-52.0); HEMOGLOBIN 12.4 g/dL (14.0-18.0); IMM GRAN# 0.02 X1000 (0.0-0.04); IMM GRAN% 0.3 % (0.0-0.5); LYMPH# 2.07 X1000 (1.2-3.4); MCH 28.4 PG (27-31); MCHC 31.9 g/dL (33-37); MCV 89.2 FL (81-99); MONO# 0.55 X1000 (0.11-0.59); MPV 9.9 FL (7.4-10.4); NEUT# 3.78 X1000 (1.4-6.5); NEUT% 54.7 % (42.2-75.2); PLT 232 X1000 (130-400); RBC 4.36 XMIL (4.7-6.1); RDW 14.1 % (11.5-14.5)
[2019-04-14 07:49] LABS: AGAP 12; BUN 11 mg/dL (8-22); CALCIUM 8.9 mg/dL (8.8-10.2); CHLORIDE 97 mmol/L (98-107); COSMO 275; ESTIMATED GFR > 60; GLUCOSE 122 mg/dL (70-104); POTASSIUM 3.4 mmol/L (3.5-5.1); SODIUM 137 mmol/L (136-145); TCO2 28 mmol/L (25-35)
[2019-04-14] MEDS: ZEBETA PO SCH (08:21)
[2019-04-14] MEDS: LASIX PO SCH (08:21)
[2019-04-14] MEDS: PRINZIDE 10/12.5MG PO SCH (08:21)
[2019-04-14] MEDS: ASPIRIN PO SCH (08:21)
[2019-04-14] MEDS: FLOMAX PO SCH ×2 (08:21→21:33)
[2019-04-14] MEDS: CYMBALTA PO SCH (08:21)
[2019-04-14] MEDS: MYCOSTATIN POWDER TOP SCH ×2 (08:23→22:11)
[2019-04-14] MEDS: ROCEPHIN 2 GM in NS 50 ML IV SCH ×2 (11:20→21:33)
[2019-04-14 11:24] LABS: INR 0.95; PROTIME 12.8 Seconds (11.0-16.0)
--- NOTE | 2019-04-14 11:57 | INFECTIOUS DISEASE PROGRESS NO ---
DATE: 04/14/2019 PRESENT ILLNESS: The patient has a very severe right leg cellulitis. On both CT scan and bone scan, there is a possibility that the patient has osteomyelitis of the leg. MEDICATIONS: The patient is receiving Rocephin 2 g IV every 12 hours. The patient has been on IV antibiotics for approximately 6 days. PHYSICAL EXAMINATION: Vital Signs: Temperature is 98.6 degrees, pulse 77, respirations 20, blood pressure 146/63. General: This is a morbidly obese, elderly male. He is in no acute distress. Head, Eyes, Ears, Nose, and Throat: He can hear my spoken words and see near objects. He does not have any white coating on his tongue. There is no drainage from the nose or ears. Neck: No pain with movement. Lungs: Clear to auscultation. Cardiovascular: Regular heart rate. Abdomen: Soft and nontender. Extremities: The patient's right leg has erythema with some purulent ulcerated areas. A dressing is in place. Neurologic: The patient is alert. He is able to stand and walk. He does not have a tremor. LAB AND X-RAY STUDIES: The patient's CBC shows a white count of 6900, hemoglobin 12.4, and platelet count is 232,000. Creatinine is 1. GFR is greater than 60. As mentioned above, both the CT scan and bone scan said that there was a possibility the patient has osteomyelitis of the leg. ASSESSMENT AND PLAN: The patient has severe cellulitis and possible osteomyelitis of the leg. The patient told me that there is an MRI that can accommodate somebody of his weight. We are calling to see if they will accommodate that and then, if they will, when the patient is discharged, he can go there and we can see if the patient does indeed have osteomyelitis or does not. If the patient does not have osteomyelitis, I would like to give him at least 2 weeks of intravenous antibiotics at home. If he does have osteomyelitis, then he will require a total of 6 weeks of intravenous Rocephin. I am putting in a consult today to have a peripherally inserted central catheter placed and also, I am putting in a social service consult to set up the home intravenous antibiotics. Also, if the open MRI can accommodate the patient, then I will request social service to set an appointment up for the patient to have an MRI after he is discharged from the hospital. COMORBIDITIES: The patient is morbidly obese. He has peripheral vascular disease, bilateral leg edema, diabetes mellitus, arthritis, gastroesophageal reflux disease, and a history of frequent lower extremity infections and wounds. cc: Keny Prather MD
[2019-04-14] MEDS ORDERED: NS 250 ML ONE (13:04)
[2019-04-14] MEDS: DILAUDID IV PRN (13:04)
[2019-04-14] MEDS: PERCOCET-10 PO PRN ×2 (14:08→22:10)
--- NOTE | 2019-04-14 15:14 | PROGRESS NOTE ---
DATE: 04/14/2019 SUBJECTIVE: I have seen and examined Mr. Reese today. He refers to be doing well. He just had his lower extremity care [facility]. OBJECTIVE: Vital signs: Blood pressure is 153/62, pulse of 74, respirations 18, temperature 98.4 degrees. General: Mr. Reese is a 64-year-old, morbidly obese, gentleman. He is in bed, no distress. HEENT: Mucosa is pink and moist. Anicteric. Acyanotic. Neck: Supple. Chest: Good air entry bilateral. There were no crepitations, no rhonchi. Cardiovascular: Regular rate and rhythm. Gastrointestinal: Abdomen is soft, nontender. Bowel sounds present. Extremities: Both lower extremities shows chronic stasis dermatopathy with the right with sterile dressing over the mid jiang. Central nervous system: Patient is awake, alert, and oriented. LABORATORY DATA: WBC is 6.90, hemoglobin is 12.4, platelet count of 232,000. Chemistry is also reviewed, unremarkable except for potassium of 3.4. MICROBIOLOGY: Showed the left leg had Enterobacter cloacae species. Blood cultures negative. ASSESSMENT AND PLAN: 1. Right lower extremity cellulitis with possible tibial osteomyelitis. The patient is on IV antibiotic. He just got a PICC line for outpatient management. 2. Hypertension. 3. Dyslipidemia. 4. Chronic pain syndrome. 5. Diabetes mellitus type 2. 6. Chronic lower extremity venous insufficiency with stasis dermatopathy. The patient has been advised to follow up with vascular surgeons for the chronic venous management. cc: Marcio Garrett MD
[2019-04-14] MEDS: NS 1,000 ML IV SCH ×3 (15:39→22:12)
[2019-04-14] MEDS: ZOCOR PO SCH (21:33)
[2019-04-14] MEDS: LANTUS INSULIN SUBQ SCH (21:33)
[2019-04-15] MEDS: ROCEPHIN 2 GM in NS 50 ML IV SCH ×2 (00:43→11:12)
[2019-04-15] MEDS: PERCOCET-10 PO PRN (05:06)
[2019-04-15] MEDS: LOVENOX SUBQ SCH (05:06)
[2019-04-15] MEDS: NS 1,000 ML IV SCH (06:45)
--- NOTE | 2019-04-15 07:45 | INFECTIOUS DISEASE PROGRESS NO ---
DATE: 04/15/2019 PRESENT ILLNESS: The patient has bilateral leg cellulitis, and it is much more severe in the right leg than the left leg. Both legs have improved since the patient has been in the hospital. There is a possibility on CT scan and bone scan that the patient has osteomyelitis. MEDICATIONS: The patient currently is on Rocephin 2 g IV every 12 hours. He has been on IV antibiotics for approximately 1 week thus far. PHYSICAL EXAMINATION: Vital Signs: Temperature is 98.1 degrees, pulse 75, respirations 18, blood pressure is 150/72. General: This is a morbidly obese, elderly male. He is in no acute distress. Head/eyes/ears/nose/throat: He can hear my spoken words and see near objects. He does not have any drainage from his nose or ears. He does not have any white patches in his mouth. Neck: No pain with movement. Lungs: Clear to auscultation. Cardiovascular: Regular heart rate. Abdomen: Soft and nontender. Extremities: Both legs are edematous and erythematous, and both legs are less edematous and erythematous than when the patient came in. The patient's wounds on the right leg have a dressing around them. The dressing is intact. The patient has a PICC in the left arm; that site is not erythematous or purulent. Neurologic: The patient is alert. He can move his extremities and he has been walking and standing. He does not have a tremor. LAB AND X-RAY: There is no new laboratory test or radiographic study that is back yet for today. ASSESSMENT AND PLAN: Patient has severe cellulitis and possible osteomyelitis of the right leg. I plan on treating the patient with Rocephin for a total of 3 weeks if he does not have a bone infection, and for 6 weeks if he does have bone infection, in other words osteomyelitis. The patient cannot fit in the MRI scanner at [facility]. There is an open MRI scanner in [place] that apparently can fit the patient in their machine, and I have put in a consultation for Social Service to make an appointment for the patient to have a magnetic resonance imaging scan done on his leg. I will have the patient come back to my office in 2 weeks, and that will mean that he has had a total of 3 weeks with intravenous antibiotics. If the patient does not have osteomyelitis, most likely I will stop the intravenous antibiotic and take out the PICC and put the patient on an oral antibiotic. If the patient does have osteomyelitis, then he will stay on the intravenous Rocephin for another 3 weeks to complete a 6-week treatment course. COMORBIDITIES: The patient is morbidly obese. He has peripheral vascular disease, bilateral leg edema, diabetes mellitus, osteoarthritis, gastroesophageal reflux disease, and a history of frequent lower extremity infections and wounds. cc: Keny Prather MD
[2019-04-15] MEDS: FLOMAX PO SCH (08:21)
[2019-04-15] MEDS: ZEBETA PO SCH (08:21)
[2019-04-15] MEDS: ASPIRIN PO SCH (08:21)
[2019-04-15] MEDS: PRINZIDE 10/12.5MG PO SCH (08:21)
[2019-04-15] MEDS: CYMBALTA PO SCH (08:21)
[2019-04-15] MEDS: MYCOSTATIN POWDER TOP SCH (08:21)
[2019-04-15] MEDS: LASIX PO SCH (08:21)
[2019-04-15] MEDS: HUMALOG SUBQ SCH ×2 (08:23→11:19)
[2019-04-15] MEDS: ZOFRAN IV PRN (11:12)
[2019-04-15 11:31] VITALS: BP 125/68
--- NOTE | 2019-04-15 18:11 | DISCHARGE SUMMARY ---
ADMISSION DATE: 04/10/2019 DISCHARGE DATE: 04/15/2019 DISPOSITION: Home. FOLLOW-UP: 1. Dr. Aguilar. 2. Dr. Prather. 3. Dr. Cobos. CONSULTATION DURING THIS ADMISSION: Infectious Disease consulted. Patient was seen by Dr. Prather. INVASIVE PROCEDURES DONE: None during this admission. IMAGING STUDIES OF SIGNIFICANCE: 1. A CT scan of the right of the right lower extremity shows an extensive edema around the lower leg, ulceration in the anterior to mid upper shaft of the thigh, question osteomyelitis. 2. A bone scan shows nonspecific uptake in the mid anterior tibia shaft. Possibility of chronic osteomyelitis cannot be excluded. ADMISSION DIAGNOSIS: 1. Right lower extremity cellulitis. 2. Hypertension. 3. Diabetes. 4. Morbid obesity. DIAGNOSIS AT THE TIME OF DISCHARGE: 1. Right lower extremity cellulitis with possible tibia osteomyelitis associated with superficial ulceration with wound culture positive for Enterobacter cloacae. 2. Hypertension. 3. Dyslipidemia. 4. Chronic pain syndrome. 5. Diabetes mellitus type 2 with a presenting A1c of 8.8. 6. Chronic lower extremity venous insufficiency with stasis dermatopathy. The patient advised to follow up with vascular surgery. DISCHARGE MEDICATIONS: 1. Lisinopril with hydrochlorothiazide 20/25 1 tablet daily. 2. Aspirin 325 p.o. daily. 3. Furosemide 40 mg p.o. at bedtime. 4. Metformin 1000 b.i.d. 5. Bisoprolol 5 mg p.o. at bedtime 6. Tamsulosin 0.4 b.i.d. 7. Insulin lispro 7 units with meals. 8. Amitriptyline 25 mg p.o. p.r.n. 9. Trulicity 1.5 subcutaneous. 10. Duloxetine 30 mg p.o. daily. 11. Lantus 40 units subcutaneous at bedtime. 12. Simvastatin 20 mg p.o. at bedtime. PRESENTING COMPLAINT: Right lower leg infection. HISTORY OF PRESENT COMPLAINT: Mr. Rosales is a 64-year-old gentleman, morbidly obese with BMI of 52.1 with multiple comorbidities, including hypertension, diabetes, chronic lower extremity venous insufficiency, who presented to the emergency department because of ulceration over the right foot, which seems to be getting better. Upon presenting, he was evaluated, including an imaging study which did suggest a possible underlying osteomyelitis. Mr. rosales was admitted to the medical floor for further management. HOSPITAL COURSE: Mr. Rosales was admitted to the medical floor. The wound was cultured, which eventually came back positive for Enterobacter cloacae. He was initially started on broad- spectrum IV antibiotics. After getting the culture resolved, this was transitioned to IV ceftriaxone. ID was consulted. There was also concern of possible underlying osteomyelitis. A bone nuclear scan was done, which was nonconclusive. Unfortunately, Mr. Rosales will not be able to do an MRI over here because of weight limitation on our MRI machine. He has been advised to follow to do this at the open MRI outside the hospital. Today, Dr. Prather has actually called and made the appointments for him to follow up and do the MRI. He will eventually follow up with Dr. Prather. Today Mr. Rosales refers to be doing well. We think he is fairly stable to be discharged. His glucose and all other comorbidities have been stable during the hospital course Mr. Rosales is going to be discharged with IV ceftriaxone at least for 3 weeks and possibly extending to 6 weeks if he is found to have osteomyelitis. [facility] as well as [facility] have all been consulted and arrangements have been done for outpatient follow-up All the discharge instructions have been discussed with Mr. Rosales and he refers understanding. Mr. Rosales has also been referred to follow up with Dr. Cobos because of the chronic lower extremity venous insufficiency for venous care. Time spent for discharge is 35 minutes. cc: MD Shaji Rust MD Raphael K. Quansah, MD
== END 2019-04-15 15:16 | disposition home health service (06) | DRG 638 ==
LOC: ED 14:29 → SUATTDRO 22:25 → EDIPHOLD 22:25 → 4N 04-11 15:17
PROVIDERS: ATTEND Internal Medicine